=== PATIENT | male | born 1955 | race Caucasian/White ===

== ENCOUNTER 2019-08-16 17:30 | Emergency (ER) | payer MEDICARE, MEDICAID, SELFPAY ==
--- NOTE | ~2019-08-16 | XR_ITS ---
EXAMINATION: XR chest 1V portable EXAM DATE: 08/16/2019 18:52 INDICATION: Shortness of breath. TECHNIQUE: Portable AP frontal chest x-ray was obtained. Comparison is made to prior examination from 06/09/2016. FINDINGS: Some limitations from underpenetration due to body habitus. The lungs are clear. There are no pleural effusions. The cardiomediastinal silhouette is within normal limits. There is no pneumo thorax suspected. The bones and soft tissues are unremarkable. IMPRESSION: No acute cardiopulmonary findings. Reviewed, dictated and finalized at location A. PACKER
[2019-08-16 17:54] VITALS: BP 140/88; PULSE 71; RESP 24; TEMP 36.3; O2SAT 96
--- NOTE | 2019-08-16 18:07 | ED.FALL ---
HPI - Fall General Chief Complaint: Fall Stated Complaint: amb Source: patient Mode of arrival: EMS Limitations: physical limitation (obesity procludes complete turning on hospital cart and whole body examination. ) History of Present Illness HPI Narrative: 64 y.o. morbidly obese male with DM lives at home by himself. Around noon today he awoke on the kitchen floor in a pool of blood with a lacerated, painful chin, pain on the left side of his neck, left shoulder and left knee. He was unable to get up onto his hands and knees. He laid on the floor for about 4 hours before his home health nurse arrived and called EMS. He's unaware of urinary incontinence but denies painful, sore cheeks. No hx of syncope or seizures. He has no idea how long he was unconscious. He had no premonition of falling. Over the past few days he has had dyspnea with exertion, unable to make his breakfast and sit down and eat it without having to take breaks to rest. Two days ago he felt the hairs stand up on his scalp and had the sensation his blood sugar was getting low. This resolved after eating some peanut butter. At the time he did not check his blood sugar level. His BID blood sugars have been running in the 200s. This AM he had been doing his normal morning activiites. He had no chest pain, palpitations, sweating, lightheadedness, dizziness. He has no hx of falling. He has been dx. with cellulitis of his right heel. He's been off antibiotics for a week. The visiting nurse comes regularly to dress his heel. Tetanus shot within the last year per patient. Fall from: standing Fall witnessed: no Related Data Home Medications Medication Instructions Recorded Confirmed aspirin 81 mg tablet,delayed 81 mg PO DAILY 07/06/19 08/16/19 release atorvastatin 40 mg tablet 40 mg PO DAILY 07/06/19 08/16/19 hydrochlorothiazide 25 mg PO DAILY 08/16/19 08/16/19 Allergies Allergy/AdvReac Type Severity Reaction Status Date / Time No Known Allergies Allergy Verified 08/03/19 10:43 Review of Systems Constitutional: Constitutional: Denies chills and Denies fever(s) ENT: Denies dizziness Cardiovascular: Cardiovascular: Denies rapid heart rate and Denies radiating jaw, neck or arm pain Respiratory: Respiratory: Denies cough and Denies wheezing Gastrointestinal: Gastrointestinal: Denies abdominal pain, Denies diarrhea and Denies vomiting Genitourinary: Genitourinary: Denies dysuria Comments: He's only able to urinate in a sitting position. Musculoskeletal: Comments: c/o sacral pain which he believes developed while laying on the kitchen floor. Integumentary/Breasts: Skin/Breast: Reports system reviewed and no additional complaints, except as docu Neurologic: Denies vertigo, Denies headache(s) and Denies focal weakness [facility] Past Medical History Medical History (Updated 08/17/19 @ 05:31 by Rajan Hilario MD) First degree atrioventricular block Gangrene Gout Ichthyosis Ischemic bowel disease Morbid obesity with BMI of 60.0-69.9, adult Sepsis Surgical History Surgical History History of back surgery History of creation of ostomy Social History Social History (Updated 08/17/19 @ 05:31 by Rajan Hilario MD) Smoking status: Never smoker Second hand tobacco smoke exposure: No Substance use: never Living arrangements: alone Exam Narrative: Exam Narrative: Morbidly obese male, alert and interactive. His body takes up most of the bariatric cart. Unable to turn over on his side for full exam of back , or exam of the sacrum. Const: General: No confusion Orientation/consciousness: patient oriented x3 HENMT: Head: normal to inspection Head images: 1. 3.5 cm laceration 2. area of pain and tenderness Ears: EAC's normal Face and sinus: normal facial exam Mouth: Yes Normal oral and palatal mucosa present Teeth and gingiva: dentition normal Eyes: EOM: EOMs intact chapito
--- NOTE | 2019-08-16 18:08 | PC.NURSE ---
[facility] CONTACTED AT THIS TIME TO REQUEST TRANSFER PER ERP REQUEST
[2019-08-16 18:39] VITALS: RESP 24
--- NOTE | 2019-08-16 19:58 | PC.NURSE ---
RN CONTACTED [facility] TO INFORM HER OF TRANSFER TO [facility] PER PATIENTS REQUEST.
[2019-08-16 20:00] VITALS: BP 116/78; PULSE 73; RESP 20; O2SAT 99
== END 2019-08-16 20:00 | disposition short-term general hospital (02) ==
LOC: CHSED 17:37
PROVIDERS: Emergency Provider Family Medicine; PCP Family Medicine
DX: M53.3 Sacrococcygeal disorders, not elsewhere classified (principal); S01.81XA Laceration without foreign body of other part of head, initial encounter; R55 Syncope and collapse; S10.93XA Contusion of unspecified part of neck, initial encounter; M25.512 Pain in left shoulder; S80.02XA Contusion of left knee, initial encounter; E66.9 Obesity, unspecified; E11.9 Type 2 diabetes mellitus without complications; W19.XXXA Unspecified fall, initial encounter
CPT/HCPCS: 12013; 71045; 99284; 99285

== ENCOUNTER 2020-03-23 13:57 | Emergency (ER) | payer MEDICARE, MEDICAID, SELFPAY ==
--- NOTE | ~2020-03-23 | XR_ITS ---
EXAMINATION: XR chest 1V portable EXAM DATE: 03/23/2020 14:51 INDICATION: Chest pressure, weakness and shortness of breath. TECHNIQUE: Portable AP frontal chest x-ray was obtained. Comparison is made to prior examination from 09/12/2019. FINDINGS: The lungs are clear. There are no pleural effusions. Cardiac silhouette is prominent but magnified on this AP technique. There is no pneumothorax suspected. The bones and soft tissues are unremarkable. IMPRESSION: No acute cardiopulmonary findings. Reviewed, dictated and finalized at location G.
--- NOTE | ~2020-03-23 | XR_ITS ---
EXAMINATION: XR foot LT 2V DATE: 03/23/2020 14:52 INDICATION: Posttraumatic pain at the left first toe TECHNIQUE: Dorsoplantar and lateral views of the left foot were obtained. COMPARISON: None. FINDINGS: Bone alignment is normal. No fracture. Large plantar calcaneal spur and moderate-sized Achilles calca felicita spur. Joint spaces are relatively preserved. Prominent soft tissue swelling about the left foot, ankle and lower leg. IMPRESSION: 1. No acute osseous abnormality. Reviewed, dictated and finalized at location A.
[2020-03-23 14:00] VITALS: BP 102/53; PULSE 66; RESP 20; TEMP 36.6; O2SAT 99
--- NOTE | 2020-03-23 14:04 | ED.SYNCOPE ---
HPI - Syncope General Chief Complaint: Fall Stated Complaint: ambulance Time Seen by Provider: 03/23/20 14:04 Source: patient Mode of arrival: EMS Limitations: no limitations History of Present Illness HPI narrative: 64-year-old man with morbid obesity, diabetes, ischemic bowel disease and history of sepsis comes in today by EMS complaining of having passed out. Patient states he was sitting on the toilet and when he stood up everything went black and he fell backwards. He thinks he was unconscious for 4-5 minutes and was laying on the floor for three hours. He was found by his HH nurse. He states that he felt ill when he woke up this morning and has been having chest pressure, mild shortness of breath, and feeling cold. Blood glucose measured by EMS was 145. MD complaint: loss of consciousness, felt faint and collapsed Onset (ago): hour(s) (1-2) Prodromal symptoms: lightheaded Witnessed: No Context: standing up Injuries sustained associated with event: other (tailbone) Current symptoms: chest pain History: previous syncopal episode Related Data Home Medications Medication Instructions Recorded Confirmed aspirin 81 mg tablet,delayed 81 mg PO DAILY 07/06/19 03/23/20 release metoprolol tartrate 50 mg PO BID 03/23/20 03/23/20 Allergies Allergy/AdvReac Type Severity Reaction Status Date / Time No Known Allergies Allergy Verified 03/07/20 12:22 Review of Systems Constitutional: Constitutional: Reports chills, Denies fever(s) and Reports weakness Eyes: Eyes: Denies change in vision and Denies photophobia ENT: Denies dysphagia, Denies nasal congestion and Denies sore throat Cardiovascular: Cardiovascular: Reports chest pain (pressure) and Denies radiating jaw, neck or arm pain Respiratory: Respiratory: Denies cough, Denies dyspnea and Denies wheezing Gastrointestinal: Gastrointestinal: Denies abdominal pain, Denies nausea and Denies vomiting Comments: Black stools recently after taking iron. Genitourinary: Genitourinary: Denies dysuria and Denies urinary frequency Musculoskeletal: Comments: Pain in his left foot. Integumentary/Breasts: Skin/Breast: Denies pruritus, Denies erythema and Denies rash Neurologic: Denies vertigo, Denies dizziness and Denies syncope Endocrine: Endocrine: Denies polydipsia and Denies polyuria Hematologic/Lymphatic: Hematologic/Lymphatic: Denies easy bleeding and Denies easy bruising Allergic/Immunologic: Allergic/Immunologic: Denies lip swelling and Denies tongue swelling [facility] Past Medical History Medical History First degree atrioventricular block Gangrene Gout Ichthyosis Ischemic bowel disease Morbid obesity with BMI of 60.0-69.9, adult Sepsis UTI (urinary tract infection), uncomplicated Surgical History Surgical History History of back surgery History of creation of ostomy Family History Family History Father Family history of pancreatic cancer Social History Social History Smoking status: Never smoker Second hand tobacco smoke exposure: No Substance use: never Exam Const: General: alert Nutritional Appearance: obese Orientation/consciousness: patient oriented x3 Limitations: no limitations Other: Mildly anxious HENMT: Head: normal to inspection Ears: EAC's normal General nose exam: Normal nares present Face and sinus: normal facial exam Mouth: Yes moist mucous membranes Throat: posterior oropharynx normal Eyes: Conjunctivae: conjunctivae normal Pupils: Equal, round and reactive pupils present EOM: EOMs intact bilaterally Resp: Effort & Inspection: normal respiratory effort and not labored Auscultation: clear to auscultation bilaterally, no rales, no rhonchi and no wheezes Cardio: Rate: regular rate Rhythm: abno
--- NOTE | 2020-03-23 14:12 | ECG_ITS ---
Measurements Intervals [place] Rate: 67 P: MO: 0 QRS: 250 QRSD: 165 T: 36 QT: 438 QTc: 464 Interpretive Statements SINUS RHYTHM WITH FIRST DEGREE AV BLOCK RIGHT AXIS DEVIATION RIGHT BUNDLE BRANCH BLOCK LOW VOLTAGE- PRECORDIAL LEADS BASELINE ARTIFACT- I, II, III, AVR, AVL, AVF, V1-V2 ABNORMAL ECG Electronically Signed On 03-23-2020 14:38:32 CDT by Robin Ford D.O.
[2020-03-23] MEDS: ASPIRIN 81 MG CHEWABLE TABLET 243 MG PO (14:35)
[2020-03-23 14:44] LABS: Basophils Absolute Auto 0.05 K/mm3 (0.00-0.10); Basophils Percent Auto 0.5 % (0.0-1.0); Eosinophils Absolute Auto 0.09 K/mm3 (0.02-0.50); Eosinophils Percent Auto 0.8 % (1.0-6.0); Hemoglobin 13.1 g/dL (12.4-15.3); Immature Granulocyte Absolute 0.07 K/mm3 (0.00-0.00); Immature Granulocyte Percent A 0.6 % (0.0-0.0); Lymphocytes Percent Auto 6.4 % (18.0-42.0); Mean Corpuscular HGB Conc 31.2 g/dL (32.0-36.0); Mean Corpuscular Hemoglobin 29.7 pg (27.0-31.0); Mean Corpuscular Volume 95.2 fL (78.0-102.0); Mean Platelet Volume 10.2 fl (8.7-11.0); Monocytes Absolute Auto 0.91 K/mm3 (0.10-0.90); Monocytes Percent Auto 8.4 % (2.0-11.0); Neutrophils Absolute Auto 9.1 K/mm3 (1.7-7.2); Neutrophils Percent Auto 83.3 % (50.0-70.0); Platelet Count Result 239 K/mm3 (150-420); Red Blood Count 4.41 M/mm3 (4.70-6.10); White Blood Count 10.9 K/mm3 (4.8-10.8)
[2020-03-23] MEDS: SODIUM CHLORIDE 0.9% IV 1,000 ML 999 ML IV CONT (14:46)
[2020-03-23 14:59] LABS: INR 1.1; Partial Thromboplastin Time 26.3 SEC (22.3-31.6); Prothrombin Time 11.7 Seconds (9.64-11.0)
[2020-03-23 15:03] LABS: Alanine Aminotransferase 29 U/L (16-63); Albumin Level 3.4 g/dL (3.4-5.0); Alkaline Phosphatase 63 U/L (46-116); Anion Gap 8 mmol/L (8-16); Aspartate Amino Transferase 26 U/L (15-37); Bilirubin,Total 0.4 mg/dL (0.00-1.00); Blood Urea Nitrogen 27 mg/dL (7-18); CRP 0.8 mg/dL (0.0-0.9); Calcium 8.5 mg/dL (8.5-10.1); Carbon Dioxide 27 mmol/L (21-32); Chloride 103 mmol/L (98-108); Estimated Glomerular Filt Rate 55; Glucose 142 mg/dL (70-99); Lactic Acid Reflex 3.2 mmol/L (0.4-2.0); Osmolality Calculated 293 mOsm/kg (285-295); Potassium 4.6 mmol/L (3.5-5.1); Sodium 138 mmol/L (136-145); Total Protein 6.7 g/dL (6.4-8.2); Troponin I < 0.02 ng/mL (0.00-0.056)
[2020-03-23 15:04] LABS: Creatine Kinase 236 U/L (39-308)
[2020-03-23 15:07] LABS: Add Urine Microscopic? YES; Appearance Urine Sl Cloudy (Clear); Bilirubin Urine Negative (Negative); Blood Urine Negative (Negative); Color Urine Yellow (Yellow); Glucose Urine UA Negative (Negative); Ketones Urine Negative (Negative); Leukocyte Esterase Ur Negative LEU/UL (Negative); Nitrate Urine Negative (Negative); Protein Urine 2+ (Negative); Specific Grav Ur >= 1.030 (1.010-1.020); Urobilinogen Urine 0.2 mg/dL (0.2-1.0)
[2020-03-23 15:12] VITALS: BP 110/58; PULSE 62; O2SAT 100
[2020-03-23 15:15] LABS: RBC Urine None seen /hpf (0-2); WBC Urine None seen /hpf (0-3)
[2020-03-23 15:16] LABS: Bacteria Urine 1+ /hpf; Mucus Urine Few /lpf; Squamous Epithelial Cell Urine None seen /hpf (Few)
[2020-03-23 15:25] LABS: BNP 20 pg/mL (0-100)
[2020-03-23 15:36] LABS: D Dimer 1.51 mg/L (0.19-0.50)
--- NOTE | 2020-03-23 15:50 | PC.NURSE ---
[facility] CALLED FOR POSSIBLE TRANSFER - WILL AWAIT SOME TIME FOR BED ASSIGNMENT THEY HAVE NO VACANCIES - PT TO BE PLACED IN BARIATRIC BED UPSTAIRS FOR BOARDING
--- NOTE | 2020-03-23 16:26 | PC.NURSE ---
STUBBED LEFT GREAT TOENAIL CLEANED AND COVERED WITH BANDAID - LIGHTS DOWN LOW - PT AWARE WE ARE AWAITING BIG BOY BED FOR BOARDING WHILE WE AWAIT TRANSFER
[2020-03-23 16:28] VITALS: BP 100/38; PULSE 64; O2SAT 100
[2020-03-23 17:32] LABS: Troponin I < 0.02 ng/mL (0.00-0.056)
[2020-03-23 17:41] LABS: Reflex Lactic Acid Yes or No Add Lactic
[2020-03-23 18:01] LABS: Lactic Acid 1.2 mmol/L (0.4-2.0)
[2020-03-23 18:46] VITALS: BP 104/46; PULSE 68; O2SAT 99
[2020-03-23] MEDS: SODIUM CHLORIDE 0.9% IV 1,000 ML 125 ML IV CONT (19:53)
[2020-03-23 20:37] LABS: Troponin I < 0.02 ng/mL (0.00-0.056)
[2020-03-23 21:25] VITALS: BP 114/55; PULSE 74; O2SAT 100
--- NOTE | 2020-03-23 23:48 | PC.NURSE ---
called [facility] asking status for bariatric bed delivery, confirmation number for bed [phone]. To find out where bed is, and call back
--- NOTE | 2020-03-24 00:05 | PC.NURSE ---
Left message for [facility] about beds
--- NOTE | 2020-03-24 00:08 | PC.NURSE ---
patient very upset about no big bed available, and very uncomfortable. reassurance given
[2020-03-24 00:09] VITALS: BP 132/54; PULSE 75; RESP 16; O2SAT 98
--- NOTE | 2020-03-24 00:11 | PC.NURSE ---
Called to [facility], no ICU beds open only medical
--- NOTE | 2020-03-24 01:35 | PC.NURSE ---
[facility] patient stable. hospitalist to call back
--- NOTE | 2020-03-24 02:31 | PC.NURSE ---
2liter fluid complete, saline lock for transfer
[2020-03-24 02:33] VITALS: BP 130/70; PULSE 72; RESP 16; TEMP 36.6; O2SAT 98
== END 2020-03-24 02:43 | disposition short-term general hospital (02) ==
PROVIDERS: Emergency Provider Emergency Medicine; PCP Family Medicine
DX: R07.89 Other chest pain (principal); E11.9 Type 2 diabetes mellitus without complications; E66.01 Morbid (severe) obesity due to excess calories; R79.1 Abnormal coagulation profile; R06.02 Shortness of breath
CPT/HCPCS: 36415; 71045; 73620; 80053; 81001; 82550; 83605; 83880; 84484; 85025; 85380; 85610; 85730; 86140; 87040; 93005; 96360; 96361; 99285; A9270; J2270; J7030

== ENCOUNTER 2020-04-01 13:24 | Inpatient (IN) | payer MEDICARE, MEDICAID, SELFPAY ==
--- NOTE | 2020-04-01 13:01 | WPDREHABHP ---
H&P: HPI History of Present Illness Date/Time: 04/01/20 13:01 Patient is a pleasant 64-year-old man and able to give good history.Patient initially came to this hospital for syncopal episode. He was standing up from the commode got lightheaded fell backwards was found several hours later and then transported to the hospital via EMS. At this facility we did not have a CT large enough for this gentleman. He was then transferred to [facility] for syncope workup and a CTA to rule out PE. CTA was negative for PE. Additional workup at [facility] discovered complicated UTI, tachypnea, right renal cyst, rhabdomyolysis, and chronic diseases such as: chronic lower extremity lymphedema, a wound on his left great toe, type 2 diabetes, hypotension, hypothyroidism, and iron-deficiency anemia. Patient has since stabilized and is being transferred to this facility for reconditioning with PT/OT. Patient is morbidly obese at 235 kg. Documentation from [facility] shows patient is a DNR with a living will and we are attempting to contact facility to get a copy of that paperwork. At this time patient denies any chest pain but states he does have little labored breathing which was brought on by him attempting to get into the bed from the EMS stretcher. Once in bed this did improve. Patient has no abdominal complaints and admits he does have a colostomy. He stated he had some pain in his penis related to the Reveles catheter had been placed this has since been removed. Patient denies any lower extremity or upper extremity pain but admits to edema in both legs. He states that the left great toenail was hit against a door frame during his initial transport from home to the ER by EMS. He does not have any pain in that toe at this time. Only other complaint patient has is soreness at his coccyx rated at a 7 or 8/10. <CECIL Jett - Last Filed: 04/01/20 15:20> Chief complaint: Swing Bed <CECIL Jett - Last Filed: 04/01/20 15:20> Narrative: Julian Duran is a 64 year old male. <CECIL Jett - Last Filed: 04/01/20 15:20> Review of Systems Review of Systems All systems reviewed & are unremarkable except as noted in HPI and below <CECIL Jett - Last Filed: 04/01/20 15:20> [facility] Past Medical History Medical History: Medical History First degree atrioventricular block Gangrene Gout Ichthyosis Ischemic bowel disease Morbid obesity with BMI of 60.0-69.9, adult Sepsis UTI (urinary tract infection), uncomplicated <CECIL Jett - Last Filed: 04/01/20 15:20> Surgical History Surgical History: Surgical History History of back surgery History of creation of ostomy <CECIL Jett - Last Filed: 04/01/20 15:20> Family History Family History: Family History Father Family history of pancreatic cancer <CECIL Jett - Last Filed: 04/01/20 15:20> Social History Social History: Social History Smoking status: Never smoker Second hand tobacco smoke exposure: No Alcohol intake: former Drinks per week: 3 Substance use: never Substance use type: does not use Gender identity (if verbalized by the patient): Male Sexual Orientation (if Verbalized by the Patient): Straight or Heterosexual Spiritual care concerns: No <CECIL Jett - Last Filed: 04/01/20 15:20> Meds Home Medications and Allergies Home medications: Home Medications Medication Instructions Recorded Confirmed Type aspirin 81 mg tablet,delayed 81 mg PO DAILY 07/06/19 04/01/20 History release nystatin 100,000 unit/gram topical 1 applic TOPICAL BID #60 gm 07/06/19 04/01/20 Rx powder docusate sodium 100 mg c
[2020-04-01 13:45] VITALS: BP 146/67; PULSE 90; RESP 26; TEMP 36.8; O2SAT 96
[2020-04-01 14:00] VITALS: BMI 66.5
[2020-04-01 14:09] LABS: Glucose Point of Care 151 (65-105)
[2020-04-01 14:56] LABS: Hematocrit 36.8 % (37.0-46.0); Hemoglobin 11.2 g/dL (12.4-15.3); Mean Corpuscular HGB Conc 30.4 g/dL (32.0-36.0); Mean Corpuscular Hemoglobin 29.6 pg (27.0-31.0); Mean Corpuscular Volume 97.4 fL (78.0-102.0); Mean Platelet Volume 9.2 fl (8.7-11.0); Platelet Count Result 203 K/mm3 (150-420); Red Blood Count 3.78 M/mm3 (4.70-6.10); Red Cell Distribution Width 14.7 % (11.6-14.4); White Blood Count 7.4 K/mm3 (4.8-10.8)
[2020-04-01 15:06] LABS: Anion Gap 2 mmol/L (8-16); Blood Urea Nitrogen 18 mg/dL (7-18); Calcium 8.1 mg/dL (8.5-10.1); Carbon Dioxide 36 mmol/L (21-32); Chloride 100 mmol/L (98-108); Estimated CRCL calculation 140 ml/min; Estimated Glomerular Filt Rate > 60; Glucose 165 mg/dL (70-99); Osmolality Calculated 291 mOsm/kg (285-295); Potassium 3.4 mmol/L (3.5-5.1); Sodium 138 mmol/L (136-145)
[2020-04-01 15:14] LABS: Band Neutrophils Percent 4 % (0-6); Basophils Percent Manual 0 % (0-1); Eosinophils Absolute Manual 0.22 K/mm3 (0.02-0.5); Eosinophils Percent Manual 3 % (1-6); Lymphocytes Absolute Manual 0.88 K/mm3 (1.1-4.5); Lymphocytes Percent Manual 12 % (18-44); Monocytes Absolute Manual 0.96 K/mm3 (0.1-0.90); Monocytes Percent Manual 13 % (3-9); Neutrophils Absolute Manual 5.32 K/mm3 (1.3-6.7); Neutrophils Percent Manual 68 % (46-73); Platelet Estimate Adequate (Adequate); Total Cells Counted 100
[2020-04-01 17:00] LABS: Glucose Point of Care 112 (65-105)
--- NOTE | 2020-04-01 17:18 | PM.IMHP ---
H&P: HPI History of Present Illness Date/Time: 04/01/20 17:18 64-year-old man with history of morbid obesity, diabetes, ischemic bowel disease and history of sepsis transferred here for swing bed care and rehabilitation. He presented to this hospital on 03/23 having passed out after being on the toilet. He was there for 3 hours for his found by his home health nurse. He was transferred to [facility] where he had PE ruled out and treatment for rhabdomyolysis and UTI. Chief complaint: Swing Bed Narrative: Julian Duran is a 64 year old male Review of Systems Constitutional: Constitutional: Denies anorexia, Denies fatigue, Denies fever(s), Denies night sweats and Reports weakness Eyes: Eyes: Denies change in vision and Denies photophobia ENT: Denies nasal congestion, Denies sore throat and Denies tongue swelling Cardiovascular: Cardiovascular: Denies chest pain, Denies irregular heart rhythm, Reports leg edema and Reports dyspnea on exertion Respiratory: Respiratory: Denies cough and Denies dyspnea Gastrointestinal: Gastrointestinal: Denies abdominal pain, Denies diarrhea, Denies nausea and Denies vomiting Genitourinary: Genitourinary: Denies dysuria, Denies urinary frequency and Denies urinary incontinence Integumentary/Breasts: Skin/Breast: Denies pruritus, Denies erythema and Denies rash Neurologic: Denies focal weakness, Denies numbness and Reports weakness Psychiatric: Psychiatric: Denies anxiety and Denies depression Hematologic/Lymphatic: Hematologic/Lymphatic: Denies easy bleeding and Denies easy bruising Allergic/Immunologic: Allergic/Immunologic: Denies urticaria, Denies lip swelling and Denies tongue swelling PMF[facility] Past Medical History Medical History First degree atrioventricular block Gangrene Gout Ichthyosis Ischemic bowel disease Morbid obesity with BMI of 60.0-69.9, adult Sepsis UTI (urinary tract infection), uncomplicated Surgical History Surgical History History of back surgery History of creation of ostomy Family History Family History Father Family history of pancreatic cancer Social History Social History Smoking status: Never smoker Second hand tobacco smoke exposure: No Alcohol intake: former Drinks per week: 3 Substance use: never Substance use type: does not use Gender identity (if verbalized by the patient): Male Sexual Orientation (if Verbalized by the Patient): Straight or Heterosexual Spiritual care concerns: No Meds Home Medications and Allergies Home Medications Medication Instructions Recorded Confirmed Type aspirin 81 mg tablet,delayed 81 mg PO DAILY 07/06/19 04/01/20 History release nystatin 100,000 unit/gram topical 1 applic TOPICAL BID #60 gm 07/06/19 04/01/20 Rx powder docusate sodium 100 mg capsule 100 mg PO BID #60 cap 07/07/19 04/01/20 Rx ferrous sulfate 325 mg (65 mg 325 mg PO BID #60 tablet 07/07/19 04/01/20 Rx iron) tablet triamcinolone acetonide 0.1 % 1 applic TOPICAL BID #80 gm 08/03/19 04/01/20 Rx topical cream insulin aspart U-100 100 unit/mL 1 sliding scale dose SUB-Q 11/24/19 04/01/20 Rx subcutaneous solution USEASDIRECTD #50 ml valsartan 160 mg tablet 160 mg PO DAILY #30 tablet 12/27/19 04/01/20 Rx atorvastatin 40 mg tablet 40 mg PO DAILY #90 tablet 01/27/20 04/01/20 Rx levothyroxine 88 mcg tablet 88 mcg PO DAILY #90 tablet 01/27/20 04/01/20 Rx tamsulosin 0.4 mg capsule 0.4 mg PO DAILY #90 cap 01/27/20 04/01/20 Rx allopurinol 300 mg tablet 300 mg PO DAILY #30 tablet 02/24/20 04/01/20 Rx furosemide 20 mg tablet 60 mg PO QAM PRN #90 tablet 02/24/20 04/01/20 Rx pantoprazole 40 mg tablet,delayed 40 mg PO BID #60 tablet 02/28/20 04/01/20 Rx release blood sugar diagnostic #100 ea 03/27/20
[2020-04-01] MEDS: PANTOPRAZOLE 40 MG TABLET PO (17:22)
[2020-04-01] MEDS: DOCUSATE SODIUM 100 MG CAPSULE PO (17:22)
[2020-04-01] MEDS: FERROUS SULFATE 324 MG TABLET 325 MG PO (17:27)
[2020-04-01] MEDS: INSULIN GLARGINE (*BKC) 100 UNITS/ML 60 UNITS SUB-Q (20:47)
[2020-04-01 20:54] LABS: Glucose Point of Care 168 (65-105)
[2020-04-02] VITALS: BP 123/71; PULSE 93; RESP 16; TEMP 36.8; O2SAT 94
[2020-04-02] MEDS: ACETAMINOPHEN 500 MG TABLET 1000 MG PO ×2 (01:50→09:57)
[2020-04-02 05:31] LABS: Hematocrit 36.3 % (37.0-46.0); Mean Corpuscular HGB Conc 30.3 g/dL (32.0-36.0); Mean Corpuscular Hemoglobin 29.5 pg (27.0-31.0); Mean Corpuscular Volume 97.3 fL (78.0-102.0); Mean Platelet Volume 9.4 fl (8.7-11.0); Platelet Count Result 205 K/mm3 (150-420); Red Blood Count 3.73 M/mm3 (4.70-6.10); White Blood Count 9.2 K/mm3 (4.8-10.8)
[2020-04-02 05:57] LABS: Alanine Aminotransferase 37 U/L (16-63); Albumin Level 2.7 g/dL (3.4-5.0); Alkaline Phosphatase 74 U/L (46-116); Anion Gap 4 mmol/L (8-16); Aspartate Amino Transferase 38 U/L (15-37); Bilirubin,Total 0.5 mg/dL (0.00-1.00); Blood Urea Nitrogen 17 mg/dL (7-18); Calcium 7.9 mg/dL (8.5-10.1); Carbon Dioxide 35 mmol/L (21-32); Chloride 101 mmol/L (98-108); Creatine Kinase 137 U/L (39-308); Estimated CRCL calculation 187 ml/min; Estimated Glomerular Filt Rate > 60; Glucose 98 mg/dL (70-99); Magnesium 1.8 mg/dL (1.8-2.4); Osmolality Calculated 291 mOsm/kg (285-295); Potassium 3.2 mmol/L (3.5-5.1); Sodium 140 mmol/L (136-145); Total Protein 5.9 g/dL (6.4-8.2)
[2020-04-02 06:05] LABS: Thyroid Stimulating Hormone Reflex 7.53 u/IU/mL (0.36-3.74)
[2020-04-02 06:13] LABS: Band Neutrophils Percent 3 % (0-6); Basophils Percent Manual 0 % (0-1); Eosinophils Absolute Manual 0.46 K/mm3 (0.02-0.5); Eosinophils Percent Manual 5 % (1-6); Monocytes Absolute Manual 1.84 K/mm3 (0.1-0.90); Monocytes Percent Manual 20 % (3-9); Total Cells Counted 100
[2020-04-02 06:14] LABS: Nucleated Red Blood Cells 1 %; Platelet Estimate Adequate (Adequate)
[2020-04-02 06:16] LABS: Other Cell Type 4
[2020-04-02 06:20] LABS: Lymphocytes Absolute Manual 1.19 K/mm3 (1.1-4.5); Lymphocytes Percent Manual 13 % (18-44)
[2020-04-02 06:21] LABS: Neutrophils Absolute Manual 5.79 K/mm3 (1.3-6.7); Neutrophils Percent Manual 60 % (46-73)
[2020-04-02 07:01] LABS: Free T4 Free Thyroxine Reflex 1.09 ng/dL (0.76-1.46)
[2020-04-02 07:40] VITALS: BP 143/71; PULSE 83; RESP 20; TEMP 35.9; O2SAT 95
[2020-04-02 07:45] LABS: Glucose Point of Care 106 (65-105)
[2020-04-02] MEDS: TAMSULOSIN HCL 0.4 MG CAPSULE PO (09:57)
[2020-04-02] MEDS: levoFLOXacin TAB 500 MG, levoFLOXacin TAB 250 MG 750 MG PO (09:57)
[2020-04-02] MEDS: DOCUSATE SODIUM 100 MG CAPSULE PO ×2 (09:58→17:19)
[2020-04-02] MEDS: ATORVASTATIN 40 MG TABLET PO (09:58)
[2020-04-02] MEDS: ASPIRIN 81 MG ENTERIC TABLET PO (09:58)
[2020-04-02] MEDS: POTASSIUM CHLORIDE 20 MEQ TABLET 40 MEQ PO (09:58)
[2020-04-02] MEDS: PANTOPRAZOLE 40 MG TABLET PO ×2 (09:58→17:19)
[2020-04-02] MEDS: allopurinoL 300 MG TABLET PO (09:59)
[2020-04-02] MEDS: hydroCHLOROthiazide 25 MG TABLET PO (09:59)
[2020-04-02] MEDS: LEVOTHYROXINE SODIUM 100 MCG TABLET PO (09:59)
[2020-04-02] MEDS: FERROUS SULFATE 324 MG TABLET PO (10:09)
--- NOTE | 2020-04-02 10:10 | PC.NURSE ---
Radha conner called to order bigger walker and bedside commode. Reference # [id number].
[2020-04-02 11:41] LABS: Glucose Point of Care 131 (65-105)
[2020-04-02] MEDS: FUROSEMIDE 20 MG TABLET 60 MG PO (12:57)
[2020-04-02] MEDS: HYDROcodone/acetaminophen (*CRX) 7.5-325 MG TABLET 1 TAB PO ×2 (12:58→20:51)
[2020-04-02 16:30] VITALS: BP 138/78; PULSE 100; RESP 18; TEMP 37; O2SAT 94
[2020-04-02 17:29] LABS: Glucose Point of Care 107 (65-105)
--- NOTE | 2020-04-02 18:14 | PC.NURSE ---
Patient sitting up in chair resting. Denies any needs at this time. Patient has call light at side.
[2020-04-02 19:25] LABS: Add Urine Microscopic? YES; Appearance Urine Clear (Clear); Bilirubin Urine Negative (Negative); Blood Urine 1+ (Negative); Color Urine Yellow (Yellow); Glucose Urine UA Negative (Negative); Ketones Urine Negative (Negative); Leukocyte Esterase Ur Trace LEU/UL (Negative); Nitrate Urine Negative (Negative); Protein Urine Negative (Negative); Specific Grav Ur 1.025 (1.010-1.020); Urobilinogen Urine 0.2 mg/dL (0.2-1.0); pH Urine 5.5 (5.0-8.0)
[2020-04-02 19:31] LABS: Bacteria Urine 1+ /hpf; Squamous Epithelial Cell Urine Rare /hpf (Few)
--- NOTE | 2020-04-02 20:42 | PC.NURSE ---
Assisted patient to bedside commode and bed. Has difficulty with bedside commode due to size. Requires assist of 2 to put legs up into bed.
[2020-04-02] MEDS: INSULIN GLARGINE (*BKC) 100 UNITS/ML 60 UNITS SUB-Q (20:56)
[2020-04-02 20:57] LABS: Glucose Point of Care 172 (65-105)
[2020-04-02 23:40] LABS: Glucose Point of Care 136 (65-105)
--- NOTE | 2020-04-02 23:55 | PC.NURSE ---
Diabetic snack given.
[2020-04-03] VITALS: BP 123/84; PULSE 90; RESP 20; TEMP 36; O2SAT 98
[2020-04-03] MEDS: ACETAMINOPHEN 500 MG TABLET 1000 MG PO (01:35)
[2020-04-03] MEDS: LEVOTHYROXINE SODIUM 100 MCG TABLET PO (05:56)
[2020-04-03 07:20] VITALS: BP 145/67; PULSE 89; RESP 20; TEMP 36.6; O2SAT 95
[2020-04-03 08:04] LABS: Glucose Point of Care 129 (65-105)
[2020-04-03] MEDS: DOCUSATE SODIUM 100 MG CAPSULE PO ×2 (08:34→16:24)
[2020-04-03] MEDS: levoFLOXacin TAB 500 MG, levoFLOXacin TAB 250 MG 750 MG PO (08:34)
[2020-04-03] MEDS: ATORVASTATIN 40 MG TABLET PO (08:34)
[2020-04-03] MEDS: hydroCHLOROthiazide 25 MG TABLET PO (08:34)
[2020-04-03] MEDS: HYDROcodone/acetaminophen (*CRX) 7.5-325 MG TABLET 1 TAB PO ×3 (08:34→22:25)
[2020-04-03] MEDS: allopurinoL 300 MG TABLET PO (08:35)
[2020-04-03] MEDS: ASPIRIN 81 MG ENTERIC TABLET PO (08:35)
[2020-04-03] MEDS: POTASSIUM CHLORIDE 20 MEQ TABLET PO (08:35)
[2020-04-03] MEDS: PANTOPRAZOLE 40 MG TABLET PO ×2 (08:35→16:23)
[2020-04-03] MEDS: TAMSULOSIN HCL 0.4 MG CAPSULE PO (08:35)
[2020-04-03] MEDS: FERROUS SULFATE 324 MG TABLET PO (08:35)
[2020-04-03 11:45] LABS: Glucose Point of Care 164 (65-105)
--- NOTE | 2020-04-03 12:33 | P.PN_ITS ---
Progress Note: A&P Assessment and Plan (1) T2DM (type 2 diabetes mellitus): Qualifiers: Diabetes mellitus complication detail: with polyneuropathy Diabetes mellitus complication status: with neurologic complications Diabetes mellitus mcfp insulin use: with terminologist use Qualified Code(s): E11.42 - Type 2 diabetes mellitus with diabetic polyneuropathy; Z79.4 - alf (current) use of insulin Code(s): E11.9 - Type 2 diabetes mellitus without complications Status: Acute Assessment and Plan: * Blood sugar control 164 * Continue insulin Lantus 60 units at bedtime and 20 units 3 times daily with Accu-Cheks and hypoglycemic protocol * Continue diabetic diet * Will collect A1c with next lab draw (2) UTI (urinary tract infection), uncomplicated: Code(s): N39.0 - Urinary tract infection, site not specified Status: Acute Assessment and Plan: * Continue Levaquin 750 mg daily until 04/10/2020 * Request a UA culture results from [facility] in [place] (3) Hyperlipidemia: Code(s): E78.5 - Hyperlipidemia, unspecified Status: Acute Assessment and Plan: * Continue statins (4) Hypertension: Code(s): I10 - Essential (primary) hypertension Status: Acute Assessment and Plan: * Blood pressure 145/67 * Continue hydrochlorothiazide 25 mg daily, restarted valsartan 160 mg * Vital signs as ordered * Will adjust as needed (5) Chronic GERD: Code(s): K21.9 - Gastro-esophageal reflux disease without esophagitis Status: Acute Assessment and Plan: * Continue pantoprazole (6) BPH (benign prostatic hyperplasia): Code(s): N40.0 - Benign prostatic hyperplasia without lower urinary tract symptoms Status: Acute Assessment and Plan: * Continue Flomax (7) Morbid obesity with BMI of 60.0-69.9, adult: Code(s): E66.01 - Morbid (severe) obesity due to excess calories; Z68.44 - Body mass index [BMI] 60.0-69.9, adult Status: Acute Assessment and Plan: * Patient educated on the healthy lifestyle (8) Lower extremity edema: Code(s): R60.0 - Localized edema Status: Acute Assessment and Plan: * Continue Lasix prn hydrochlorothiazide * Continue to lubricate lower extremities with moisturizer in wrap with Kit wrap (9) Colostomy in place: Code(s): Z93.3 - Colostomy status Status: Acute Assessment and Plan: * 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 Exhibit tolerance during physical activity as evidenced by a normal fluctuation of vital signs during physical activity. ? Patient will be ability to perform required activities of daily living. ? Provide appropriate nutrition for healing and strength. ? Use appropriate to prevent falls. ? Continue physical therapy/occupational therapy. Review of Systems Review of Systems: All systems reviewed & are unremarkable except as noted in HPI and below (10 point system review) Exam Narrative: Exam Narrative: GENERAL: Morbidly obese in no apparent distress. HEAD: normocephalic, atraumatic. EYES: PERRL. Sclera clear/white. Vision is grossly intact. EARS: External ears normal, auditory canals clear and without drainage, TMs normal without perforation. Hearing grossly intact. NOSE: External nose normal with no obvious nasal discharge, nares without redness, no r
--- NOTE | 2020-04-03 12:33 | WPDPN ---
Progress Note: A&P Assessment and Plan (1) T2DM (type 2 diabetes mellitus): Qualifiers: Diabetes mellitus complication detail: with polyneuropathy Diabetes mellitus complication status: with neurologic complications Diabetes mellitus longterm insulin use: with longterm use Qualified Code(s): E11.42 - Type 2 diabetes mellitus with diabetic polyneuropathy; Z79.4 - [facility] (current) use of insulin Code(s): E11.9 - Type 2 diabetes mellitus without complications Status: Acute Assessment and Plan: Blood sugar control 164 Continue insulin Lantus 60 units at bedtime and 20 units 3 times daily with Accu-Cheks and hypoglycemic protocol Continue diabetic diet Will collect A1c with next lab draw (2) UTI (urinary tract infection), uncomplicated: Code(s): N39.0 - Urinary tract infection, site not specified Status: Acute Assessment and Plan: Continue Levaquin 750 mg daily until 04/10/2020 Request a UA culture results from [facility] in [place] (3) Hyperlipidemia: Code(s): E78.5 - Hyperlipidemia, unspecified Status: Acute Assessment and Plan: Continue statins (4) Hypertension: Code(s): I10 - Essential (primary) hypertension Status: Acute Assessment and Plan: Blood pressure 145/67 Continue hydrochlorothiazide 25 mg daily, restarted valsartan 160 mg Vital signs as ordered Will adjust as needed (5) Chronic GERD: Code(s): K21.9 - Gastro-esophageal reflux disease without esophagitis Status: Acute Assessment and Plan: Continue pantoprazole (6) BPH (benign prostatic hyperplasia): Code(s): N40.0 - Benign prostatic hyperplasia without lower urinary tract symptoms Status: Acute Assessment and Plan: Continue Flomax (7) Morbid obesity with BMI of 60.0-69.9, adult: Code(s): E66.01 - Morbid (severe) obesity due to excess calories; Z68.44 - Body mass index [BMI] 60.0-69.9, adult Status: Acute Assessment and Plan: Patient educated on the healthy lifestyle (8) Lower extremity edema: Code(s): R60.0 - Localized edema Status: Acute Assessment and Plan: Continue Lasix prn hydrochlorothiazide Continue to lubricate lower extremities with moisturizer in wrap with Kit wrap (9) Colostomy in place: Code(s): Z93.3 - Colostomy status Status: Acute Assessment and Plan: 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 Exhibit tolerance during physical activity as evidenced by a normal fluctuation of vital signs during physical activity. ? Patient will be ability to perform required activities of daily living. ? Provide appropriate nutrition for healing and strength. ? Use appropriate to prevent falls. ? Continue physical therapy/occupational therapy. Review of Systems Review of Systems: All systems reviewed & are unremarkable except as noted in HPI and below (10 point system review) Exam Narrative: Exam Narrative: GENERAL: Morbidly obese in no apparent distress. HEAD: normocephalic, atraumatic. EYES: PERRL. Sclera clear/white. Vision is grossly intact. EARS: External ears normal, auditory canals clear and without drainage, TMs normal without perforation. Hearing grossly intact. NOSE: External nose normal with no obvious nasal discharge, nares without redness, no rhinorrhea. THROAT: Mucous membranes moist, posterior pharynx clear. NECK: Neck supple, non-tender without lymphadenopathy, masses or thyromegaly. CARDIOVASCULAR: Regular rate and rhythm without murmurs, gallops, or rubs. RESPIRATORY: Clear to auscultation. Breath sounds equal bilaterally. No wheezes, rales, or rhonchi. GASTROINTESTINAL: Abdomen soft, non-tender, nondistended. Bowel sounds are active. Ostomy bag in place with s
[2020-04-03 15:45] VITALS: BP 129/69; PULSE 92; RESP 20; TEMP 36.9; O2SAT 96
[2020-04-03 16:29] LABS: Glucose Point of Care 153 (65-105)
[2020-04-03] MEDS: INSULIN GLARGINE (*BKC) 100 UNITS/ML 60 UNITS SUB-Q (20:51)
[2020-04-03 20:56] LABS: Glucose Point of Care 206 (65-105)
[2020-04-04] VITALS: BP 140/63; PULSE 88; RESP 20; TEMP 36.6; O2SAT 95
--- NOTE | 2020-04-04 02:20 | PC.NURSE ---
pt sleeping, respirations even and regular, no evidence of distress noted at this time
[2020-04-04] MEDS: LEVOTHYROXINE SODIUM 100 MCG TABLET PO (05:35)
[2020-04-04 06:15] LABS: Alanine Aminotransferase 37 U/L (16-63); Alkaline Phosphatase 68 U/L (46-116); Anion Gap 5 mmol/L (8-16); Aspartate Amino Transferase 33 U/L (15-37); Bilirubin,Total 0.6 mg/dL (0.00-1.00); Blood Urea Nitrogen 13 mg/dL (7-18); Calcium 8.8 mg/dL (8.5-10.1); Carbon Dioxide 36 mmol/L (21-32); Chloride 98 mmol/L (98-108); Estimated CRCL calculation 157 ml/min; Estimated Glomerular Filt Rate > 60; Glucose 140 mg/dL (70-99); Magnesium 1.9 mg/dL (1.8-2.4); Osmolality Calculated 290 mOsm/kg (285-295); Potassium 3.7 mmol/L (3.5-5.1); Sodium 139 mmol/L (136-145); Total Protein 5.6 g/dL (6.4-8.2)
[2020-04-04 08:00] VITALS: BP 148/80; PULSE 79; RESP 20; TEMP 36.1; O2SAT 96
[2020-04-04] MEDS: VALSARTAN 80 MG TABLET 160 MG PO (09:24)
[2020-04-04] MEDS: HYDROcodone/acetaminophen (*CRX) 7.5-325 MG TABLET 1 TAB PO ×3 (09:24→22:10)
[2020-04-04] MEDS: DOCUSATE SODIUM 100 MG CAPSULE PO ×2 (09:24→16:47)
[2020-04-04] MEDS: ASPIRIN 81 MG ENTERIC TABLET PO (09:25)
[2020-04-04] MEDS: PANTOPRAZOLE 40 MG TABLET PO ×2 (09:25→16:47)
[2020-04-04] MEDS: POTASSIUM CHLORIDE 20 MEQ TABLET PO (09:25)
[2020-04-04] MEDS: levoFLOXacin TAB 500 MG, levoFLOXacin TAB 250 MG 750 MG PO (09:25)
[2020-04-04] MEDS: hydroCHLOROthiazide 25 MG TABLET PO (09:25)
[2020-04-04] MEDS: ATORVASTATIN 40 MG TABLET PO (09:25)
[2020-04-04] MEDS: TAMSULOSIN HCL 0.4 MG CAPSULE PO (09:25)
[2020-04-04] MEDS: FERROUS SULFATE 324 MG TABLET PO (09:25)
[2020-04-04] MEDS: allopurinoL 300 MG TABLET PO (09:25)
[2020-04-04 11:54] LABS: Glucose Point of Care 165 (65-105)
[2020-04-04 15:56] VITALS: BP 92/49; PULSE 95; RESP 20; TEMP 36.3; O2SAT 94
--- NOTE | 2020-04-04 16:12 | PCOTNOTE ---
OT attempted to see patient however patient refused and stated I just got back into bed and am worn out from PT.
[2020-04-04 16:56] LABS: Glucose Point of Care 144 (65-105)
[2020-04-04] MEDS: INSULIN GLARGINE (*BKC) 100 UNITS/ML 60 UNITS SUB-Q (20:49)
[2020-04-04 20:53] LABS: Glucose Point of Care 199 (65-105)
[2020-04-05] VITALS: BP 143/69; PULSE 85; RESP 20; TEMP 36.4; O2SAT 95
[2020-04-05] MEDS: HYDROcodone/acetaminophen (*CRX) 7.5-325 MG TABLET 1 TAB PO ×3 (05:10→20:52)
[2020-04-05] MEDS: LEVOTHYROXINE SODIUM 100 MCG TABLET PO (05:10)
[2020-04-05 08:00] VITALS: BP 134/67; PULSE 80; RESP 20; TEMP 35.9; O2SAT 96
[2020-04-05] MEDS: hydroCHLOROthiazide 25 MG TABLET PO (09:02)
[2020-04-05] MEDS: VALSARTAN 80 MG TABLET 160 MG PO (09:02)
[2020-04-05] MEDS: levoFLOXacin TAB 500 MG, levoFLOXacin TAB 250 MG 750 MG PO (09:02)
[2020-04-05] MEDS: ASPIRIN 81 MG ENTERIC TABLET PO (09:03)
[2020-04-05] MEDS: TAMSULOSIN HCL 0.4 MG CAPSULE PO (09:03)
[2020-04-05] MEDS: FERROUS SULFATE 324 MG TABLET PO (09:03)
[2020-04-05] MEDS: PANTOPRAZOLE 40 MG TABLET PO ×2 (09:03→16:55)
[2020-04-05] MEDS: ATORVASTATIN 40 MG TABLET PO (09:03)
[2020-04-05] MEDS: ACETAMINOPHEN 500 MG TABLET 1000 MG PO (09:03)
[2020-04-05] MEDS: allopurinoL 300 MG TABLET PO (09:03)
[2020-04-05] MEDS: DOCUSATE SODIUM 100 MG CAPSULE PO ×2 (09:03→16:55)
[2020-04-05] MEDS: POTASSIUM CHLORIDE 20 MEQ TABLET PO (09:03)
[2020-04-05 11:47] LABS: Glucose Point of Care 154 (65-105)
[2020-04-05 11:47] LABS: Glucose Point of Care 160 (65-105)
[2020-04-05 16:00] VITALS: BP 116/71; PULSE 89; RESP 20; TEMP 36.4; O2SAT 97
[2020-04-05 16:59] LABS: Glucose Point of Care 131 (65-105)
--- NOTE | 2020-04-05 18:11 | PC.NURSE ---
Nurse called [facility] to cancel bariatric walker due to [employer] delivering one.
--- NOTE | 2020-04-05 20:01 | PC.NURSE ---
[facility] delivered bariatric walker. Placed in patient's room.
--- NOTE | 2020-04-05 20:30 | PC.NURSE ---
Patient experiencing panic attack. Called out for assistance. PRN medication given. Blair reports increased anxiety iwth returning home and wether she wants to continue chemotherapy
[2020-04-05] MEDS: INSULIN GLARGINE (*BKC) 100 UNITS/ML 60 UNITS SUB-Q (20:53)
[2020-04-05 21:15] LABS: Glucose Point of Care 154 (65-105)
[2020-04-06] VITALS: BP 151/55; PULSE 92; RESP 22; TEMP 36.3; O2SAT 95
[2020-04-06] MEDS: LEVOTHYROXINE SODIUM 100 MCG TABLET PO (05:53)
[2020-04-06 07:31] LABS: Glucose Point of Care 132 (65-105)
[2020-04-06 08:00] VITALS: BP 114/57; PULSE 82; RESP 20; TEMP 36; O2SAT 96
[2020-04-06] MEDS: levoFLOXacin TAB 500 MG, levoFLOXacin TAB 250 MG 750 MG PO (08:16)
[2020-04-06] MEDS: allopurinoL 300 MG TABLET PO (08:17)
[2020-04-06] MEDS: VALSARTAN 80 MG TABLET 160 MG PO (08:17)
[2020-04-06] MEDS: TAMSULOSIN HCL 0.4 MG CAPSULE PO (08:17)
[2020-04-06] MEDS: PANTOPRAZOLE 40 MG TABLET PO ×2 (08:17→16:58)
[2020-04-06] MEDS: POTASSIUM CHLORIDE 20 MEQ TABLET PO (08:17)
[2020-04-06] MEDS: ASPIRIN 81 MG ENTERIC TABLET PO (08:17)
[2020-04-06] MEDS: ATORVASTATIN 40 MG TABLET PO (08:17)
[2020-04-06] MEDS: hydroCHLOROthiazide 25 MG TABLET PO (08:17)
[2020-04-06] MEDS: ACETAMINOPHEN 500 MG TABLET 1000 MG PO (08:17)
[2020-04-06] MEDS: DOCUSATE SODIUM 100 MG CAPSULE PO ×2 (08:17→16:59)
[2020-04-06 11:29] LABS: Glucose Point of Care 148 (65-105)
[2020-04-06] MEDS: FERROUS SULFATE 324 MG TABLET PO (11:31)
[2020-04-06] MEDS: HYDROcodone/acetaminophen (*CRX) 7.5-325 MG TABLET 1 TAB PO ×2 (13:14→20:24)
[2020-04-06 16:00] VITALS: BP 131/78; PULSE 92; RESP 20; TEMP 36.6; O2SAT 95
[2020-04-06 16:54] LABS: Glucose Point of Care 101 (65-105)
[2020-04-06] MEDS: INSULIN GLARGINE (*BKC) 100 UNITS/ML 60 UNITS SUB-Q (20:25)
[2020-04-06 20:27] LABS: Glucose Point of Care 120 (65-105)
--- NOTE | 2020-04-06 20:35 | PC.NURSE ---
Glucose 120 glucerna given with HS medication
[2020-04-07] VITALS: BP 130/59; PULSE 92; RESP 18; TEMP 36.4; O2SAT 97
[2020-04-07] MEDS: LEVOTHYROXINE SODIUM 100 MCG TABLET PO (05:29)
[2020-04-07 05:43] LABS: Hematocrit 38.8 % (37.0-46.0); Hemoglobin 11.8 g/dL (12.4-15.3); Mean Corpuscular HGB Conc 30.4 g/dL (32.0-36.0); Mean Corpuscular Hemoglobin 29.6 pg (27.0-31.0); Mean Corpuscular Volume 97.2 fL (78.0-102.0); Mean Platelet Volume 9.3 fl (8.7-11.0); Platelet Count Result 244 K/mm3 (150-420); Red Blood Count 3.99 M/mm3 (4.70-6.10); Red Cell Distribution Width 15.4 % (11.6-14.4); White Blood Count 7.1 K/mm3 (4.8-10.8)
[2020-04-07 06:04] LABS: Alanine Aminotransferase 40 U/L (16-63); Albumin Level 3.1 g/dL (3.4-5.0); Alkaline Phosphatase 62 U/L (46-116); Anion Gap 4 mmol/L (8-16); Aspartate Amino Transferase 37 U/L (15-37); Bilirubin,Total 0.6 mg/dL (0.00-1.00); Blood Urea Nitrogen 14 mg/dL (7-18); Carbon Dioxide 33 mmol/L (21-32); Chloride 100 mmol/L (98-108); Estimated CRCL calculation 139 ml/min; Estimated Glomerular Filt Rate > 60; Glucose 137 mg/dL (70-99); Osmolality Calculated 286 mOsm/kg (285-295); Phosphorus 4.5 mg/dL (2.6-4.7); Potassium 3.8 mmol/L (3.5-5.1); Sodium 137 mmol/L (136-145); Total Protein 6.3 g/dL (6.4-8.2)
--- NOTE | 2020-04-07 07:17 | PM.DS ---
DS: Admitting Diagnosis Admitting Diagnosis Admitting Diagnosis: rehab DS: Discharge Diagnosis Discharge Diagnosis (1) T2DM (type 2 diabetes mellitus): Qualifiers: Diabetes mellitus complication detail: with polyneuropathy Diabetes mellitus complication status: with neurologic complications Diabetes mellitus watcher [employer] insulin use: with watcher [employer] use Qualified Code(s): E11.42 - Type 2 diabetes mellitus with diabetic polyneuropathy; Z79.4 - long term acute care registered nurse (current) use of insulin Code(s): E11.9 - Type 2 diabetes mellitus without complications Status: Acute Assessment and Plan: Blood sugar control 120 Continue insulin Lantus 60 units at bedtime and 20 units 3 times daily with Accu-Cheks and hypoglycemic protocol Continue diabetic diet A1c -6.5 (2) UTI (urinary tract infection), uncomplicated: Code(s): N39.0 - Urinary tract infection, site not specified Status: Acute Assessment and Plan: Continue Levaquin 750 mg daily until 04/11/2020 (3) Hyperlipidemia: Code(s): E78.5 - Hyperlipidemia, unspecified Status: Acute Assessment and Plan: Continue statins (4) Hypertension: Code(s): I10 - Essential (primary) hypertension Status: Acute Assessment and Plan: Blood pressure 130/59 Continue hydrochlorothiazide 25 mg daily, restarted valsartan 160 mg Follow-up primary care physician (5) Chronic GERD: Code(s): K21.9 - Gastro-esophageal reflux disease without esophagitis Status: Acute Assessment and Plan: Continue pantoprazole (6) BPH (benign prostatic hyperplasia): Code(s): N40.0 - Benign prostatic hyperplasia without lower urinary tract symptoms Status: Acute Assessment and Plan: Continue Flomax (7) Morbid obesity with BMI of 60.0-69.9, adult: Code(s): E66.01 - Morbid (severe) obesity due to excess calories; Z68.44 - Body mass index [BMI] 60.0-69.9, adult Status: Acute Assessment and Plan: Patient educated on the healthy lifestyle (8) Lower extremity edema: Code(s): R60.0 - Localized edema Status: Acute Assessment and Plan: Continue Lasix prn hydrochlorothiazide Continue to lubricate lower extremities with moisturizer in wrap with Kit wrap (9) Colostomy in place: Code(s): Z93.3 - Colostomy status Status: Acute Assessment and Plan: 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 Exhibit tolerance during physical activity as evidenced by a normal fluctuation of vital signs during physical activity. ? Patient will be ability to perform required activities of daily living. ? Provide appropriate nutrition for healing and strength. ? Use appropriate to prevent falls. ? Continue physical therapy/occupational therapy. DS: Summary Time Spent with Patient Time attestation: Total time spent providing and/or coordinating discharge services:60 Exam Narrative: Exam Narrative: GENERAL: Morbidly obese in no apparent distress. HEAD: normocephalic, atraumatic. EYES: PERRL. Sclera clear/white. Vision is grossly intact. EARS: External ears normal, auditory canals clear and without drainage, TMs normal without perforation. Hearing grossly intact. NOSE: External nose normal with no obvious nasal discharge, nares without redness, no rhinorrhea. THROAT: Mucous membranes moist, posterior pharynx clear. NECK: Neck supple, non-tender without lymphadenopathy, masses or thyromegaly. CARDIOVASCULAR: Regular rate and rhythm without murmurs, gallops, or rubs. RESPIRATORY: Clear to auscultation. Breath sounds equal bilaterally. No wheezes, rales, or rhonchi. GASTROINTESTINAL: Abdomen soft, non-tender, nondistended. Bowel sounds are active. Ostomy bag in place with soft brown stool SKIN: warm, intact
[2020-04-07 07:48] VITALS: BP 120/67; PULSE 82; RESP 18; TEMP 36.1; O2SAT 96
[2020-04-07] MEDS: allopurinoL 300 MG TABLET PO (08:49)
[2020-04-07] MEDS: hydroCHLOROthiazide 25 MG TABLET PO (08:50)
[2020-04-07] MEDS: TAMSULOSIN HCL 0.4 MG CAPSULE PO (08:50)
[2020-04-07] MEDS: FERROUS SULFATE 324 MG TABLET PO (08:50)
[2020-04-07] MEDS: levoFLOXacin TAB 500 MG, levoFLOXacin TAB 250 MG 750 MG PO (08:50)
[2020-04-07] MEDS: PANTOPRAZOLE 40 MG TABLET PO (08:50)
[2020-04-07] MEDS: ATORVASTATIN 40 MG TABLET PO (08:50)
[2020-04-07] MEDS: POTASSIUM CHLORIDE 20 MEQ TABLET PO (08:50)
[2020-04-07] MEDS: VALSARTAN 80 MG TABLET 160 MG PO (08:50)
[2020-04-07] MEDS: ASPIRIN 81 MG ENTERIC TABLET PO (08:51)
[2020-04-07] MEDS: DOCUSATE SODIUM 100 MG CAPSULE PO (08:51)
--- NOTE | 2020-04-07 11:18 | PC.NURSE ---
fax and call residential home health with discharge instructions, summary, and hospitalist summary
--- NOTE | 2020-04-07 11:34 | PC.NURSE ---
spoke with Micki from [facility] reported patient was being discharge to home. Rental equipment with reference number [id number] needs to be picked. [employer] gave same reference number and will send someone out to get equipment.
--- NOTE | 2020-04-07 11:40 | PC.NURSE ---
All discharge instructions and education reviewed with patient.Patient reports understanding,denies any questions at discharge. All belongings gathered together for patient. Belongings sent home with patient. Patient discharged to home, transported via [facility], Left floor accompanied by EMS.
--- NOTE | 2020-04-07 14:17 | PC.NURSE ---
[address] here to cook pickled meat bariatric bed and chair. Susana Boss, maintenance help nurse take equipment to dock back of hospital to load up.
--- NOTE | 2020-04-13 14:02 | PC.NURSE ---
Pt states he understood his instructions and they did a fine job .
== END 2020-04-07 11:45 | disposition home health service (06) | DRG 556 ==
PROVIDERS: Nurse Practitioner; Nurse Practitioner Family; Admitting Provider Emergency Medicine; PCP Family Medicine; Visit Provider Emergency Medicine
DX: M62.81 Muscle weakness (generalized) (principal); N39.0 Urinary tract infection, site not specified; M62.82 Rhabdomyolysis; D50.9 Iron deficiency anemia, unspecified; E66.01 Morbid (severe) obesity due to excess calories; E03.9 Hypothyroidism, unspecified; E11.42 Type 2 diabetes mellitus with diabetic polyneuropathy; E78.5 Hyperlipidemia, unspecified; K21.9 Gastro-esophageal reflux disease without esophagitis; N40.0 Benign prostatic hyperplasia without lower urinary tract symptoms; Z93.3 Colostomy status
CPT/HCPCS: 36415; 80048; 80053; 81001; 82550; 83735; 84100; 84439; 84443; 85025; 85027; 87086; 87088; 97110; 97161; 97165; 97530; 97535; A9270; J1815

== ENCOUNTER 2020-04-18 16:22 | Outpatient (NON) | payer MEDICARE, SELFPAY ==
[2020-04-18 16:43] LABS: Add Urine Microscopic? NO; Appearance Urine Clear (Clear); Bilirubin Urine Negative (Negative); Blood Urine Negative (Negative); Color Urine Yellow (Yellow); Glucose Urine UA Negative (Negative); Ketones Urine Negative (Negative); Leukocyte Esterase Ur Negative (Negative); Nitrate Urine Negative (Negative); Protein Urine Negative (Negative); Specific Grav Ur 1.015 (1.010-1.020); Urobilinogen Urine 0.2 mg/dL (0.2-1.0)
[2020-04-18 16:50] LABS: Hemoglobin A1C 6.1 % (<5.7)
== END 2020-04-18 16:23 ==
PROVIDERS: Visit Provider Family Medicine
DX: N39.0 Urinary tract infection, site not specified (principal); E11.42 Type 2 diabetes mellitus with diabetic polyneuropathy
CPT/HCPCS: 36415; 81003; 83036; 87086

== ENCOUNTER 2020-12-25 07:36 | Emergency (ER) | payer MEDICARE, MEDICAID, SELFPAY ==
--- NOTE | ~2020-12-25 | XR_ITS ---
EXAMINATION: XR chest 1V portable DATE: 12/25/2020 08:11 INDICATION: Left hemiparesis. TECHNIQUE: A single frontal view of the chest was obtained. COMPARISON: Chest single view 03/23/2020, chest CT 05/20/2016 FINDINGS: There is mild atelectasis at left lung base. No pleural effusion or pneumothorax. The heart size is normal. There is prominent extrapleural fat. IMPRESSION: 1. Mild atelectasis at left lung base. Reviewed, dictated and finalized at location A.
[2020-12-25 07:40] VITALS: BP 118/54; PULSE 83; RESP 24; TEMP 36.6; O2SAT 100
--- NOTE | 2020-12-25 07:46 | ECG_ITS ---
Measurements Intervals [place] Rate: 83 P: 37 SC: 264 QRS: -71 QRSD: 107 T: -5 QT: 397 QTc: 469 Interpretive Statements SINUS RHYTHM WITH FIRST DEGREE AV BLOCK VENTRICULAR PREMATURE COMPLEX RIGHT BUNDLE BRANCH BLOCK LOW QRS VOLTAGE IN PRECORDIAL LEADS LEFT ANTERIOR FASCICULAR BLOCK BASELINE ARTIFACT- I, II, III, AVR, AVL, AVF, V1, V4-V6 ABNORMAL ECG Electronically Signed On 12-25-2020 8:03:07 CDT by Robin Ford D.O.
--- NOTE | 2020-12-25 07:56 | PC.NURSE ---
pt states his weight his [address] staff at bedside and state pt is too large for ct scanner table.
--- NOTE | 2020-12-25 07:57 | PC.NURSE ---
dr marrero speaking with dr maya at [facility] in [place].
[2020-12-25 08:07] LABS: Basophils Absolute Auto 0.05 K/mm3 (0.00-0.10); Basophils Percent Auto 0.6 % (0.0-1.0); Eosinophils Absolute Auto 0.39 K/mm3 (0.02-0.50); Eosinophils Percent Auto 4.5 % (1.0-6.0); Hematocrit 30.2 % (37.0-46.0); Hemoglobin 8.7 g/dL (12.4-15.3); Immature Granulocyte Absolute 0.08 K/mm3 (0.00-0.00); Immature Granulocyte Percent A 0.9 % (0.0-0.0); Lymphocytes Absolute Auto 0.93 K/mm3 (1.10-4.50); Lymphocytes Percent Auto 10.8 % (18.0-42.0); Mean Corpuscular HGB Conc 28.8 g/dL (32.0-36.0); Mean Corpuscular Hemoglobin 22.6 pg (27.0-31.0); Mean Corpuscular Volume 78.4 fL (78.0-102.0); Mean Platelet Volume 9.4 fl (8.7-11.0); Monocytes Absolute Auto 0.91 K/mm3 (0.10-0.90); Monocytes Percent Auto 10.6 % (2.0-11.0); Neutrophils Absolute Auto 6.3 K/mm3 (1.7-7.2); Neutrophils Percent Auto 72.6 % (50.0-70.0); Platelet Count Result 248 K/mm3 (150-420); Red Blood Count 3.85 M/mm3 (4.70-6.10); Red Cell Distribution Width 18.2 % (11.6-14.4); White Blood Count 8.6 K/mm3 (4.8-10.8)
[2020-12-25 08:08] LABS: Base Excess ABG 3.3 mmol/L (0-2); HCO3 ABG 28.2 mmol/L (23-29); PCO2 ABG 43.6 mmHg (35-45); PO2 ABG 111.1 mmHg (75-85); pH ABG 7.43 (7.35-7.45)
[2020-12-25 08:11] LABS: Device ROOM AIR; Modified Allen's Test Pass; Oxygen Saturation ABG 98.1 % (95-97); Site Drawn RIGHT BRACHIAL
--- NOTE | 2020-12-25 08:11 | ED.NEUROSD ---
HPI - Neuro Symptoms/Deficit General Chief Complaint: Suspected CVA Stated Complaint: AMBULANCE Time Seen by Provider: 12/25/20 07:40 Source: patient Mode of arrival: EMS Limitations: no limitations History of Present Illness HPI Narrative: Pagett 5-year-old man with a history of hypertension, morbid obesity, diabetes, and chronic lower extremity edema brought to the emergency department this morning after he called for dizziness that started at 4:00 a.m. and weakness and numbness (like they are asleep) in his left arm and leg that started since then. He also complains of some mild shortness of breath. Patient states he does not know when the arm and leg symptoms started. He states he has had no recent falls, recent surgeries, chest pain, nausea or vomiting, cough or cold symptoms, or abdominal pain. patient states was in his usual state of health when he went to bed last night. He last took his medications yesterday morning. His blood sugar per EMS is 139. Onset (ago): hour(s) (4.5) Time: 04:00 Location: left arm, left leg and ataxia History of same: No Severity: moderate Quality: weak, numb and tingling Relieving factors: time Exacerbating factors: none Associated symptoms: shortness of breath Treatments Prior to Arrival: none Related Data Home Medications Medication Instructions Recorded Confirmed aspirin 81 mg tablet,delayed 81 mg PO DAILY 07/06/19 09/13/20 release docusate sodium 100 mg capsule 100 mg PO BID PRN cap 04/19/20 09/13/20 Allergies Allergy/AdvReac Type Severity Reaction Status Date / Time No Known Allergies Allergy Verified 11/20/20 13:01 Review of Systems Review of Systems: All systems reviewed & are unremarkable except as noted in HPI and below Constitutional: Constitutional: Reports lethargy Eyes: Eyes: Denies change in vision, Denies loss of vision and Denies other visual disturbances ENT: Denies dysphagia, Denies nasal congestion and Denies sore throat Cardiovascular: Cardiovascular: Denies chest pain, Denies syncope and Reports leg edema (chronic) Respiratory: Respiratory: Denies cough, Denies excessive phlegm production and Reports dyspnea Gastrointestinal: Gastrointestinal: Denies hematochezia, Denies diarrhea, Denies nausea and Denies vomiting Musculoskeletal: Musculoskeletal: Reports as per HPI, Reports abnormal gait, Reports muscle weakness, Reports numbness and Reports tingling Integumentary/Breasts: Comments: Erythema in the groin. Chronic edema of the lower extremities bilaterally Neurologic: Reports Normal hearing present, Reports lack of coordination, Reports focal weakness, Denies loss of vision, Denies memory loss, Reports numbness, Reports paresthesias and Reports disequilibrium Hematologic/Lymphatic: Hematologic/Lymphatic: Denies easy bleeding and Denies easy bruising Allergic/Immunologic: Allergic/Immunologic: Denies urticaria, Denies throat swelling and Denies tongue swelling PMFSH Past Medical History Medical History Chest heaviness First degree atrioventricular block Gangrene Gout Ichthyosis Ischemic bowel disease Morbid obesity with BMI of 60.0-69.9, adult Positive D-dimer Sepsis UTI (urinary tract infection), uncomplicated Surgical History Surgical History History of back surgery History of creation of ostomy Family History Family History Father Family history of pancreatic cancer Social History Social History Smoking status: Never smoker Second hand tobacco smoke exposure: No Alcohol intake: former Drinks per week: 3 Substance use: never Substance use type: does not use Gender identity (if verbalized by the patient): Male Spiritual care concerns: No Exam Const: General: cooperative Nutritional Murali
[2020-12-25 08:19] LABS: INR 1.1; Partial Thromboplastin Time 23.9 SEC (23.90-30.70); Prothrombin Time 11.7 Seconds (9.50-12.10)
[2020-12-25 08:26] LABS: Alanine Aminotransferase 16 U/L (16-63); Albumin Level 2.9 g/dL (3.4-5.0); Alkaline Phosphatase 66 U/L (46-116); Anion Gap 11 mmol/L (8-16); Aspartate Amino Transferase 18 U/L (15-37); Bilirubin,Total 0.4 mg/dL (0.00-1.00); Blood Urea Nitrogen 22 mg/dL (7-18); Calcium 8.3 mg/dL (8.5-10.1); Carbon Dioxide 29 mmol/L (21-32); Chloride 101 mmol/L (98-108); Estimated CRCL calculation 138 ml/min; Estimated Glomerular Filt Rate > 60; Glucose 149 mg/dL (70-99); Osmolality Calculated 298 mOsm/kg (285-295); Potassium 3.9 mmol/L (3.5-5.1); Sodium 141 mmol/L (136-145); Total Protein 6.1 g/dL (6.4-8.2); Troponin I 9.1 ng/L (0.00-60.4)
[2020-12-25 08:33] LABS: Add Urine Microscopic? NO; Appearance Urine Clear (Clear); Bilirubin Urine Negative (Negative); Blood Urine Negative (Negative); Color Urine Light Yellow (Yellow); Glucose Urine UA Negative (Negative); Ketones Urine Negative (Negative); Leukocyte Esterase Ur Negative LEU/UL (Negative); Nitrate Urine Negative (Negative); Protein Urine Negative (Negative); Specific Grav Ur 1.025 (1.010-1.020); Urobilinogen Urine 0.2 mg/dL (0.2-1.0)
[2020-12-25 08:40] VITALS: BP 124/58; PULSE 83; RESP 20; O2SAT 98
--- NOTE | 2020-12-25 08:40 | PC.NURSE ---
Pt transported to [facility] in [place] per KEE, [facility] updated with pts lab results and covid test result. results also faxed.
[2020-12-25 08:42] LABS: SARS-CoV-2 Ag Negative (Negative)
== END 2020-12-25 08:42 | disposition short-term general hospital (02) ==
PROVIDERS: Emergency Provider Emergency Medicine; PCP Family Medicine
DX: R42 Dizziness and giddiness (principal); G81.90 Hemiplegia, unspecified affecting unspecified side; E66.01 Morbid (severe) obesity due to excess calories; D64.9 Anemia, unspecified; M10.9 Gout, unspecified; R06.02 Shortness of breath; Z20.822 Contact with and (suspected) exposure to COVID-19
CPT/HCPCS: 36415; 36600; 71045; 80053; 81003; 82375; 82805; 83050; 84484; 85025; 85610; 85730; 87426; 93005; 99285; C9803

== ENCOUNTER 2021-01-02 18:28 | Inpatient (IN) | payer MEDICARE, MEDICAID, SELFPAY ==
--- NOTE | 2021-01-02 18:15 | PC.NURSE ---
Patient admitted to room 226. Transferred into bed using maxislide. Oriented to room and call light,
[2021-01-02 19:30] VITALS: O2SAT 96
[2021-01-02 19:31] VITALS: BP 135/76; PULSE 66; RESP 20; TEMP 36.6; O2SAT 95
[2021-01-02 21:38] VITALS: PULSE 68
[2021-01-02] MEDS: METOPROLOL TARTRATE 50 MG TAB PO (21:38)
[2021-01-02] MEDS: INSULIN DETEMIR 100 UNITS/ML 60 UNITS SUB-Q (21:41)
[2021-01-02 22:46] VITALS: PULSE 68; RESP 20; O2SAT 96
[2021-01-02 23:59] VITALS: BP 122/67; PULSE 68; RESP 20; TEMP 36.3; O2SAT 96
[2021-01-03] VITALS: BP 122/67; PULSE 68; RESP 20; TEMP 36.3; O2SAT 96
--- NOTE | 2021-01-03 04:37 | PM.IMHP ---
H&P: HPI History of Present Illness Date/Time: 01/03/21 04:37 Chief Complaint: MR Duran is transferred her for physical therapy and strengthening. Narrative: He had some transient weakness in his lower extremities and dizziness at home. He was taken into a local ER and was seen there. Because of concerns he might have been having a TIA or CVA, he was transferred to [facility] and seen by a medicine and stroke team. He was worked up with a CT head that was negative, carotid angiogram showed no carotid or vertebral stenosis. He did have a spinal stenosis at C 3-4 that was noted, but apparently not causing any pain. Ct angiogram of saray, and CT perfusion of brain were negative. This episode was felt to be caused by some transient hypotension according to the stroke team. He has multiple medical comorbidities that could be playing into this, including his diabetes and hypertension. Review of Systems Constitutional: Constitutional: Reports no additional constitutional complaints Eyes: Eyes: Reports no additional eye complaints ENT: Reports system reviewed and no additional complaints, except as documented Cardiovascular: Cardiovascular: Reports no additional cardiovascular complaints Respiratory: Respiratory: Reports no additional respiratory complaints Gastrointestinal: Gastrointestinal: Reports no additional gastrointestinal complaints Genitourinary: Genitourinary: Reports no additional male genitourinary complaints Musculoskeletal: Musculoskeletal: Reports no additional musculoskeletal complaints Integumentary/Breasts: Comments: Rash on flap from groin, likely yeast Neurologic: Reports system reviewed and no additional complaints, except as documented Psychiatric: Psychiatric: Reports no additional psychiatric complaints [facility] Past Medical History Medical History (Updated 01/03/21 @ 05:39 by Oral Iverson MD) Chest heaviness Chronic GERD Diabetes mellitus First degree atrioventricular block Gangrene Gout Hyperlipidemia Ichthyosis Iron deficiency anemia Ischemic bowel disease Morbid obesity with BMI of 60.0-69.9, adult Positive D-dimer Sepsis UTI (urinary tract infection), uncomplicated Surgical History Surgical History History of back surgery History of creation of ostomy Family History Family History Father Family history of pancreatic cancer Social History Social History Smoking status: Never smoker Second hand tobacco smoke exposure: No Alcohol intake: never Drinks per week: 3 Substance use: never Substance use type: does not use Gender identity (if verbalized by the patient): Male Spiritual care concerns: No Meds Home Medications and Allergies Home Medications Medication Instructions Recorded Confirmed Type triamcinolone acetonide 0.1 % 1 applic TOPICAL BID #80 gm 04/24/20 01/02/21 Rx topical cream atorvastatin 40 mg tablet 40 mg PO DAILY #90 tablet 09/26/20 01/02/21 Rx hydrochlorothiazide 25 mg tablet 25 mg PO DAILY #30 tablet 10/08/20 01/02/21 Rx insulin detemir U-100 100 unit/mL 60 unit SUB-Q HS #20 ml 10/08/20 01/02/21 Rx subcutaneous solution levothyroxine 88 mcg tablet 88 mcg PO DAILY #30 tablet 10/08/20 01/02/21 Rx metoprolol tartrate 50 mg tablet 50 mg PO BID 90 Days #60 tablet 10/08/20 01/02/21 Rx tamsulosin 0.4 mg capsule 0.4 mg PO DAILY #30 cap 10/08/20 01/02/21 Rx allopurinol 300 mg PO DAILY 01/02/21 01/02/21 History furosemide 60 mg PO DAILY PRN 01/02/21 01/02/21 History hydroxyzine HCl 25 mg PO QID PRN 01/02/21 01/02/21 History pantoprazole 40 mg PO BID 01/02/21 01/02/21 History potassium chloride 20 meq PO DAILY 01/02/21 01/02/21 History Allergies Allergy/AdvReac Type Severity Reaction Status Date / Time No Known Allergies Allergy Verified 11/20/20 13:01 Vital Signs Vital Signs
[2021-01-03 05:26] VITALS: O2SAT 95
--- NOTE | 2021-01-03 06:03 | PC.NURSE ---
[facility] called and said they needed a creatinine lab value on the patient to determine dosing for lovenox.
--- NOTE | 2021-01-03 06:21 | PC.NURSE ---
Dr. Iverson notified of pharmacy's call; Dr. Iverson with a patient at this time and message left with ER nurse.
[2021-01-03] MEDS: LEVOTHYROXINE SODIUM 88 MCG TABLET PO (06:34)
--- NOTE | 2021-01-03 06:45 | PC.NURSE ---
Dr. Iverson notified of Yonas's request for a current creatinine level to dose lovenox; No new orders at this time.
[2021-01-03 07:45] VITALS: BP 127/61; PULSE 60; RESP 18; TEMP 36.3; O2SAT 99
[2021-01-03 07:55] LABS: Basophils Absolute Auto 0.03 K/mm3 (0.00-0.10); Basophils Percent Auto 0.5 % (0.0-1.0); Eosinophils Percent Auto 6.1 % (1.0-6.0); Hematocrit 36.2 % (37.0-46.0); Hemoglobin 9.7 g/dL (12.4-15.3); Immature Granulocyte Absolute 0.12 K/mm3 (0.00-0.00); Immature Granulocyte Percent A 1.8 % (0.0-0.0); Lymphocytes Absolute Auto 0.78 K/mm3 (1.10-4.50); Lymphocytes Percent Auto 11.9 % (18.0-42.0); Mean Corpuscular HGB Conc 26.8 g/dL (32.0-36.0); Mean Corpuscular Hemoglobin 23.1 pg (27.0-31.0); Mean Corpuscular Volume 86.2 fL (78.0-102.0); Mean Platelet Volume 8.8 fl (8.7-11.0); Monocytes Absolute Auto 0.67 K/mm3 (0.10-0.90); Monocytes Percent Auto 10.2 % (2.0-11.0); Neutrophils Absolute Auto 4.6 K/mm3 (1.7-7.2); Neutrophils Percent Auto 69.5 % (50.0-70.0); Platelet Count Result 221 K/mm3 (150-420); Red Cell Distribution Width 20.4 % (11.6-14.4); White Blood Count 6.6 K/mm3 (4.8-10.8)
[2021-01-03 08:00] LABS: Glucose Point of Care 128 mg/dl (65-105)
[2021-01-03 08:18] LABS: Alanine Aminotransferase 20 U/L (16-63); Alkaline Phosphatase 62 U/L (46-116); Anion Gap 6 mmol/L (8-16); Aspartate Amino Transferase 24 U/L (15-37); Bilirubin,Total 0.5 mg/dL (0.00-1.00); Blood Urea Nitrogen 11 mg/dL (7-18); Calcium 8.8 mg/dL (8.5-10.1); Carbon Dioxide 41 mmol/L (21-32); Chloride 98 mmol/L (98-108); Estimated Glomerular Filt Rate > 60; Glucose 123 mg/dL (70-99); Osmolality Calculated 300 mOsm/kg (285-295); Potassium 3.8 mmol/L (3.5-5.1); Sodium 145 mmol/L (136-145); Total Protein 6.5 g/dL (6.4-8.2)
[2021-01-03] MEDS: TRIAMCINOLONE ACET 0.1% CREAM 80 GM TUBE 1 APPLIC TOPICAL (10:00)
[2021-01-03 10:12] VITALS: PULSE 60
[2021-01-03] MEDS: PANTOPRAZOLE 40 MG TABLET PO ×2 (10:12→17:39)
[2021-01-03] MEDS: METOPROLOL TARTRATE 50 MG TAB PO ×2 (10:12→21:02)
[2021-01-03] MEDS: ATORVASTATIN 40 MG TABLET PO (10:12)
[2021-01-03] MEDS: allopurinoL 300 MG TABLET PO (10:12)
[2021-01-03] MEDS: ENOXAPARIN 40 MG/0.4 ML SYRINGE SUB-Q (10:13)
[2021-01-03] MEDS: hydroCHLOROthiazide 25 MG TABLET PO (10:13)
[2021-01-03] MEDS: TAMSULOSIN HCL 0.4 MG CAPSULE PO (10:13)
[2021-01-03] MEDS: POTASSIUM CHLORIDE 20 MEQ TABLET PO (10:13)
[2021-01-03 12:17] LABS: Glucose Point of Care 123 mg/dl (65-105)
--- NOTE | 2021-01-03 13:05 | PM.IMPN ---
Progress Note: A&P Assessment and Plan (1) Generalized muscle weakness: Code(s): M62.81 - Muscle weakness (generalized) <Franco Reese CLIENT SERVICES ACCOUNT MANAGER-C - Last Filed: 01/03/21 13:46> Status: Chronic <Franco Reese, CLIENT SERVICES ACCOUNT MANAGER-C - Last Filed: 01/03/21 13:46> Assessment and Plan: Pt to work with PT/OT for: Relieve pain, Improve movement or ability, Prevent or recover from an injury, Prevent disability, Work on balance to prevent a slip or fall, Learn to use assistive devices like a walker or cane <Franco Reese CLIENT SERVICES ACCOUNT MANAGER-C - Last Filed: 01/03/21 13:46> (2) Candidiasis: Code(s): B37.9 - Candidiasis, unspecified <Franco Reese CLIENT SERVICES ACCOUNT MANAGER-C - Last Filed: 01/03/21 13:46> Status: Acute <Franco Reese CLIENT SERVICES ACCOUNT MANAGER-C - Last Filed: 01/03/21 13:46> Assessment and Plan: DC'ed Triamcinolone, started Nystatin Cream BID, Wash clean dry area prior to application of cream <Franco Reese CLIENT SERVICES ACCOUNT MANAGER-C - Last Filed: 01/03/21 13:46> (3) History of creation of ostomy: Code(s): Z93.9 - Artificial opening status, unspecified <Franco Reese CLIENT SERVICES ACCOUNT MANAGER-C - Last Filed: 01/03/21 13:46> Status: Acute <Franco Reese CLIENT SERVICES ACCOUNT MANAGER-C - Last Filed: 01/03/21 13:46> Assessment and Plan: Pt takes care of his colostomy needs on his own. <Franco Reese CLIENT SERVICES ACCOUNT MANAGER-C - Last Filed: 01/03/21 13:46> (4) Gout: Code(s): M10.9 - Gout, unspecified <Franco Reese CLIENT SERVICES ACCOUNT MANAGER-C - Last Filed: 01/03/21 13:46> Status: Chronic <Franco Reese CLIENT SERVICES ACCOUNT MANAGER-C - Last Filed: 01/03/21 13:46> Assessment and Plan: Continue Allopurinol <Franco Reese CLIENT SERVICES ACCOUNT MANAGER-C - Last Filed: 01/03/21 13:46> (5) T2DM (type 2 diabetes mellitus): Qualifiers: Diabetes mellitus complication detail: with polyneuropathy Diabetes mellitus complication status: with neurologic complications Diabetes mellitus prison insulin use: with prison use Qualified Code(s): E11.42 - Type 2 diabetes mellitus with diabetic polyneuropathy; Z79.4 - local intermodal truck driver (current) use of insulin <Franco MyersJeffery GiancarloLAUREN loza-C - Last Filed: 01/03/21 13:46> Code(s): E11.9 - Type 2 diabetes mellitus without complications <Franco MyersJeffery GiancarloLAUREN loza-C - Last Filed: 01/03/21 13:46> Status: Chronic <Franco MondragonLAUREN loza-C - Last Filed: 01/03/21 13:46> Assessment and Plan: Continue Detemir, SSI, Glucose monitoring, hypoglycemic protocol in place, diabetic diet. <Franco MyersJeffery Reese APN-C - Last Filed: 01/03/21 13:46> (6) Hyperlipidemia: Code(s): E78.5 - Hyperlipidemia, unspecified <Franco MyersJeffery GiancarloLAUREN loza-C - Last Filed: 01/03/21 13:46> Status: Chronic <Franco MondragonLAUREN loza-C - Last Filed: 01/03/21 13:46> Assessment and Plan: Continue Atorvastatin <Franco MondragonLAUREN loza-C - Last Filed: 01/03/21 13:46> (7) Hypertension: Code(s): I10 - Essential (primary) hypertension <Franco MyersJeffery GiancarloLAUREN loza-C - Last Filed: 01/03/21 13:46> Status: Chronic <Franco MyersJeffery GiancarloLAUREN loza-C - Last Filed: 01/03/21 13:46> Assessment and Plan: Continue HCTZ, Metoprolol, monitor VS, make adjustments as needed to medications <Franco MyersJeffery Reese APN-C - Last Filed: 01/03/21 13:46> (8) Chronic GERD: Code(s): K21.9 - Gastro-esophageal reflux disease without esophagitis <Franco MyersJeffery Reese APN-C - Last Filed: 01/03/21 13:46> Status: Chronic <Franco CECIL Schwarz - Last Filed: 01/03/21 13:46> Assessment and Plan: Continue Protonix PO <CECIL Jett - Last Filed: 01/03/21 13:46> (9) BPH (benign prostatic hyperplasia): Code(s): N40.0 - Benign prostatic hyperplasia without lower urinary tract symptoms <CECIL Jett - Last Filed: 01/03/21 13:46> Status: Chronic <CECIL Jett - Last Filed: 01/03/21 13:46> Assessment and Plan: Continue Tamsulosin <CECIL Jett - Last Filed: 01/03/21
[2021-01-03 16:50] VITALS: BP 124/50; PULSE 70; RESP 20; TEMP 36.9; O2SAT 94
[2021-01-03 17:43] LABS: Glucose Point of Care 191 mg/dl (65-105)
[2021-01-03 21:02] VITALS: PULSE 67
[2021-01-03] MEDS: INSULIN DETEMIR 100 UNITS/ML 60 UNITS SUB-Q (21:06)
[2021-01-03 21:28] LABS: Glucose Point of Care 212 mg/dl (65-105)
[2021-01-03] MEDS: MICONAZOLE NITRATE 2% CREAM 30 GM TUBE 1 APPLIC TOPICAL (21:29)
[2021-01-04] VITALS: BP 138/65; PULSE 67; RESP 18; TEMP 37.1; O2SAT 95
[2021-01-04 06:00] VITALS: PULSE 60; RESP 18; O2SAT 95
[2021-01-04] MEDS: LEVOTHYROXINE SODIUM 88 MCG TABLET PO (06:05)
--- NOTE | 2021-01-04 07:28 | PC.NURSE ---
OT in room to evaluate patient.
[2021-01-04 07:45] VITALS: BP 144/70; PULSE 61; RESP 18; TEMP 36.4; O2SAT 95
[2021-01-04 08:00] LABS: Glucose Point of Care 108 mg/dl (65-105)
[2021-01-04] MEDS: ENOXAPARIN 40 MG/0.4 ML SYRINGE SUB-Q (08:35)
[2021-01-04] MEDS: ATORVASTATIN 40 MG TABLET PO (08:35)
[2021-01-04] MEDS: hydroCHLOROthiazide 25 MG TABLET PO (08:35)
[2021-01-04] MEDS: POTASSIUM CHLORIDE 20 MEQ TABLET PO (08:35)
[2021-01-04 08:36] VITALS: PULSE 70
[2021-01-04] MEDS: PANTOPRAZOLE 40 MG TABLET PO ×2 (08:36→17:04)
[2021-01-04] MEDS: METOPROLOL TARTRATE 50 MG TAB PO ×2 (08:36→20:38)
[2021-01-04] MEDS: allopurinoL 300 MG TABLET PO (08:36)
[2021-01-04] MEDS: TAMSULOSIN HCL 0.4 MG CAPSULE PO (08:36)
[2021-01-04] MEDS: MICONAZOLE NITRATE 2% CREAM 30 GM TUBE 1 APPLIC TOPICAL ×2 (08:57→20:46)
[2021-01-04 11:50] LABS: Glucose Point of Care 138 mg/dl (65-105)
[2021-01-04] MEDS: TOLNAFTATE 1% POWDER 45 GM BTL 1 APPLIC TOPICAL ×2 (11:50→20:43)
[2021-01-04 16:45] VITALS: BP 125/85; PULSE 60; RESP 18; TEMP 36.4; O2SAT 95
[2021-01-04 17:02] LABS: Glucose Point of Care 154 mg/dl (65-105)
[2021-01-04 20:38] VITALS: PULSE 68
[2021-01-04] MEDS: INSULIN DETEMIR 100 UNITS/ML 60 UNITS SUB-Q (20:42)
[2021-01-04 20:58] LABS: Glucose Point of Care 212 mg/dl (65-105)
--- NOTE | 2021-01-04 23:05 | PC.NURSE ---
Completed bedside report. Updated board, and introduced to patient. Patient is resting comfortably in bed. Reports no pain, and does not have any needs at this time. Recently changed, including bedding.
[2021-01-05] VITALS (7 sets, daily range): BP systolic 127–142; BP diastolic 53–76; PULSE 55–67; RESP 16–20; TEMP 35.8–36.9; O2SAT 96–98
--- NOTE | 2021-01-05 02:05 | PC.NURSE ---
Patient is sleeping. Appears to be comfortable. Nurse call light is within reach.
[2021-01-05] MEDS: LEVOTHYROXINE SODIUM 88 MCG TABLET PO (06:30)
--- NOTE | 2021-01-05 06:47 | PC.NURSE ---
Patient was sleeping when medication was due at 0630. Patient woke before medication was ready. He asked to be moved to the chair to wait for breakfast. He was able to roll towards the side of the bed, and moved both of his legs off the bed to the floor with minimal assist. He was able to stand from a seated position on the side of the bed, and used his walker with an assist of 1 as he moved to the chair. He was positioned with a pillow behind his back, and two covers. Patient stated that he was comfortable, and did not need anything else at this time.
[2021-01-05 07:56] LABS: Glucose Point of Care 132 mg/dl (65-105)
[2021-01-05] MEDS: ENOXAPARIN 40 MG/0.4 ML SYRINGE SUB-Q (08:18)
[2021-01-05] MEDS: TAMSULOSIN HCL 0.4 MG CAPSULE PO (08:19)
[2021-01-05] MEDS: POTASSIUM CHLORIDE 20 MEQ TABLET PO (08:19)
[2021-01-05] MEDS: PANTOPRAZOLE 40 MG TABLET PO ×2 (08:19→17:10)
[2021-01-05] MEDS: hydroCHLOROthiazide 25 MG TABLET PO (08:19)
[2021-01-05] MEDS: METOPROLOL TARTRATE 50 MG TAB PO ×2 (08:19→21:02)
[2021-01-05] MEDS: allopurinoL 300 MG TABLET PO (08:20)
[2021-01-05] MEDS: ATORVASTATIN 40 MG TABLET PO (08:20)
[2021-01-05] MEDS: MICONAZOLE NITRATE 2% CREAM 30 GM TUBE 1 APPLIC TOPICAL ×2 (08:21→21:08)
[2021-01-05] MEDS: TOLNAFTATE 1% POWDER 45 GM BTL 1 APPLIC TOPICAL ×2 (08:21→21:10)
[2021-01-05 11:35] LABS: Glucose Point of Care 176 mg/dl (65-105)
[2021-01-05 21:06] LABS: Glucose Point of Care 160 mg/dl (65-105)
[2021-01-05] MEDS: INSULIN DETEMIR 100 UNITS/ML 60 UNITS SUB-Q (21:09)
[2021-01-06 06:00] VITALS: PULSE 70; RESP 18; O2SAT 96
[2021-01-06] MEDS: LEVOTHYROXINE SODIUM 88 MCG TABLET PO (06:01)
[2021-01-06 07:43] LABS: Glucose Point of Care 129 mg/dl (65-105)
[2021-01-06 08:00] VITALS: BP 143/72; PULSE 61; RESP 18; TEMP 35.9; O2SAT 93
[2021-01-06] MEDS: ENOXAPARIN 40 MG/0.4 ML SYRINGE SUB-Q (09:07)
[2021-01-06] MEDS: hydroCHLOROthiazide 25 MG TABLET PO (09:07)
[2021-01-06] MEDS: TAMSULOSIN HCL 0.4 MG CAPSULE PO (09:07)
[2021-01-06] MEDS: POTASSIUM CHLORIDE 20 MEQ TABLET PO (09:07)
[2021-01-06] MEDS: ATORVASTATIN 40 MG TABLET PO (09:07)
[2021-01-06] MEDS: PANTOPRAZOLE 40 MG TABLET PO ×2 (09:07→17:04)
[2021-01-06 09:08] VITALS: PULSE 61
[2021-01-06] MEDS: MICONAZOLE NITRATE 2% CREAM 30 GM TUBE 1 APPLIC TOPICAL (09:08)
[2021-01-06] MEDS: TOLNAFTATE 1% POWDER 45 GM BTL 1 APPLIC TOPICAL ×2 (09:08→21:12)
[2021-01-06] MEDS: allopurinoL 300 MG TABLET PO (09:08)
[2021-01-06] MEDS: METOPROLOL TARTRATE 50 MG TAB PO ×2 (09:08→21:03)
[2021-01-06 11:36] LABS: Glucose Point of Care 183 mg/dl (65-105)
[2021-01-06 16:00] VITALS: BP 135/56; PULSE 70; RESP 18; TEMP 37.1; O2SAT 96
[2021-01-06 16:35] LABS: Glucose Point of Care 220 mg/dl (65-105)
[2021-01-06 21:03] VITALS: PULSE 65
[2021-01-06] MEDS: INSULIN DETEMIR 100 UNITS/ML 60 UNITS SUB-Q (21:11)
[2021-01-06 23:50] VITALS: BP 139/61; PULSE 65; RESP 20; TEMP 36.6; O2SAT 94
[2021-01-07] MEDS: MICONAZOLE NITRATE 2% CREAM 30 GM TUBE 1 APPLIC TOPICAL ×3 (00:43→21:50)
[2021-01-07] MEDS: ACETAMINOPHEN 325 MG TABLET 650 MG PO (03:05)
[2021-01-07] MEDS: LEVOTHYROXINE SODIUM 88 MCG TABLET PO (06:05)
[2021-01-07 07:45] VITALS: BP 123/66; PULSE 62; RESP 18; TEMP 36.2; O2SAT 95
[2021-01-07 08:00] VITALS: PULSE 62; RESP 18; O2SAT 95
[2021-01-07 08:56] LABS: Glucose Point of Care 181 mg/dl (65-105)
[2021-01-07 08:57] LABS: Glucose Point of Care 137 mg/dl (65-105)
[2021-01-07 08:57] LABS: Glucose Point of Care 132 mg/dl (65-105)
[2021-01-07 09:18] VITALS: PULSE 72
[2021-01-07] MEDS: ENOXAPARIN 40 MG/0.4 ML SYRINGE SUB-Q (09:18)
[2021-01-07] MEDS: POTASSIUM CHLORIDE 20 MEQ TABLET PO (09:18)
[2021-01-07] MEDS: METOPROLOL TARTRATE 50 MG TAB PO ×2 (09:18→21:49)
[2021-01-07] MEDS: allopurinoL 300 MG TABLET PO (09:18)
[2021-01-07] MEDS: TAMSULOSIN HCL 0.4 MG CAPSULE PO (09:18)
[2021-01-07] MEDS: PANTOPRAZOLE 40 MG TABLET PO ×2 (09:19→18:14)
[2021-01-07] MEDS: TOLNAFTATE 1% POWDER 45 GM BTL 1 APPLIC TOPICAL ×2 (09:19→21:50)
[2021-01-07] MEDS: ATORVASTATIN 40 MG TABLET PO (09:19)
[2021-01-07 11:57] LABS: Glucose Point of Care 145 mg/dl (65-105)
[2021-01-07 11:59] LABS: Appearance Urine Clear (Clear); Bilirubin Urine Negative (Negative); Color Urine Yellow (Yellow); Glucose Urine UA Negative (Negative); Ketones Urine Negative (Negative); Leukocyte Esterase Ur Negative (Negative); Nitrate Urine Negative (Negative); Protein Urine Trace (Negative); Urobilinogen Urine 0.2 mg/dL (0.2-1.0); pH Urine 7.5 (5.0-8.0)
[2021-01-07 12:04] LABS: Add Urine Microscopic? YES; Bacteria Urine 1+ /hpf; Blood Urine Trace-Intact (Negative); Squamous Epithelial Cell Urine Few /hpf (Few); WBC Urine 0-3 /hpf (0-3)
[2021-01-07 12:05] LABS: Mucus Urine Few /lpf
--- NOTE | 2021-01-07 12:15 | PM.EVENT ---
Event Note Event Note Event Note: Pt informed the RN today that he has been feeling chills the last couple nights with a little night sweats. He is requesting a UA be performed. This was sent to the lab. No WBC, 1+ bacteria, 3-5 RBCs, trace blood and protein.
[2021-01-07 15:14] LABS: Glucose Point of Care 214 mg/dl (65-105)
[2021-01-07 16:00] VITALS: BP 145/61; PULSE 65; RESP 18; TEMP 36.4; O2SAT 97
[2021-01-07 16:15] LABS: Glucose Point of Care 177 mg/dl (65-105)
[2021-01-07 21:49] VITALS: PULSE 70
[2021-01-07] MEDS: INSULIN DETEMIR 100 UNITS/ML 60 UNITS SUB-Q (21:50)
[2021-01-07 21:52] LABS: Glucose Point of Care 233 mg/dl (65-105)
--- NOTE | 2021-01-07 23:15 | PC.NURSE ---
Bedside report completed. Patient was resting in bed, needed to use commode. Once the bed was deflated in the seat area, patient was able to swing his legs over to the floor, and sit up with minimal support. Able to use walker to walk to commode, seated himself, and used commode. Needs to be wiped after use. Able to walk back to bed using his walker, and needed help to swing one of his legs back onto the bed. Once head of bed was put down, able to pull himself up in bed, using the trapeze to situate himself in the center of the bed. Updated the board, refilled the mattress, and patient stated was ready to sleep.
[2021-01-08] VITALS: BP 125/61; PULSE 60; RESP 18; TEMP 37.1; O2SAT 97
--- NOTE | 2021-01-08 02:28 | PC.NURSE ---
Patient rang for the commode. After deflating the seat of the mattress, patient was able to come to a seated position on the side of the bed with minimal assistance. Patient was able to use his walker to move to the commode, and while on the commode changed the bag on his colostomy bag. He was able to move back to the bed, and brought both legs onto the bed, using the rails of the bed and the trapeze to situate himself on the mattress. The mattress was reinflated, and the patient was resting comfortably.
[2021-01-08] MEDS: LEVOTHYROXINE SODIUM 88 MCG TABLET PO (06:44)
--- NOTE | 2021-01-08 06:45 | PC.NURSE ---
Patient woke up when brought medication in. Needed to use the toilet. Was able to get out of bed with minimal assist, and walked to commode using walker. After using the commode, patient moved to recliner, and was settled in there to wait for breakfast. Patient was comfortable, and not in need of anything else at that time.
[2021-01-08 07:55] VITALS: BP 127/73; PULSE 70; RESP 18; TEMP 36; O2SAT 97
[2021-01-08 08:00] VITALS: PULSE 70; RESP 18; O2SAT 97
[2021-01-08 08:19] LABS: Glucose Point of Care 147 mg/dl (65-105)
[2021-01-08] MEDS: allopurinoL 300 MG TABLET PO (09:32)
[2021-01-08 09:33] VITALS: PULSE 70
[2021-01-08] MEDS: TAMSULOSIN HCL 0.4 MG CAPSULE PO (09:33)
[2021-01-08] MEDS: MICONAZOLE NITRATE 2% CREAM 30 GM TUBE 1 APPLIC TOPICAL ×2 (09:33→20:35)
[2021-01-08] MEDS: PANTOPRAZOLE 40 MG TABLET PO ×2 (09:33→17:10)
[2021-01-08] MEDS: POTASSIUM CHLORIDE 20 MEQ TABLET PO (09:33)
[2021-01-08] MEDS: ENOXAPARIN 40 MG/0.4 ML SYRINGE SUB-Q (09:33)
[2021-01-08] MEDS: ATORVASTATIN 40 MG TABLET PO (09:33)
[2021-01-08] MEDS: METOPROLOL TARTRATE 50 MG TAB PO ×2 (09:33→20:33)
[2021-01-08] MEDS: TOLNAFTATE 1% POWDER 45 GM BTL 1 APPLIC TOPICAL ×2 (09:34→20:34)
[2021-01-08 11:39] LABS: Glucose Point of Care 119 mg/dl (65-105)
--- NOTE | 2021-01-08 13:13 | PCPTNOTE ---
1300 - PT attended patient care confrence. patient, PT, and social worker delinquency prevention in attendance. patient was informed of current progress, and plan to DC to home [facility]. patient was in agreement of plan, and reports he would like to leave tomorrow around 1pm. patient to have residential home health PT evaluation when home. GINA
[2021-01-08 15:45] VITALS: BP 136/66; PULSE 59; RESP 18; TEMP 36.4; O2SAT 94
[2021-01-08 17:39] LABS: Glucose Point of Care 129 mg/dl (65-105)
[2021-01-08 20:33] VITALS: PULSE 78
[2021-01-08] MEDS: INSULIN DETEMIR 100 UNITS/ML 60 UNITS SUB-Q (20:41)
[2021-01-08 20:43] LABS: Glucose Point of Care 197 mg/dl (65-105)
[2021-01-09] VITALS: BP 127/41; PULSE 60; RESP 20; TEMP 36.3; O2SAT 95
[2021-01-09] MEDS: ACETAMINOPHEN 325 MG TABLET 650 MG PO (03:56)
[2021-01-09] MEDS: LEVOTHYROXINE SODIUM 88 MCG TABLET PO (06:08)
[2021-01-09 07:24] LABS: Glucose Point of Care 155 mg/dl (65-105)
[2021-01-09 08:00] VITALS: BP 118/65; PULSE 72; RESP 18; TEMP 36.1; O2SAT 96
--- NOTE | 2021-01-09 08:55 | P.DS_ITS ---
DS: Admitting Diagnosis Admitting Diagnosis Generalized weakness/ physical deconditioning <SARAH CastroC - Last Filed: 01/09/21 09:37> DS: Discharge Diagnosis Discharge Diagnosis (1) Generalized muscle weakness: Code(s): M62.81 - Muscle weakness (generalized) <SANGITA Castro-C - Last Filed: 01/09/21 09:37> Status: Chronic <NICHOLAS Castro - Last Filed: 01/09/21 09:37> Assessment and Plan: Pt to work with PT/OT for: Relieve pain, Improve movement or ability, Prevent or recover from an injury, Prevent disability, Work on balance to prevent a slip or fall, Learn to use assistive devices like a walker or cane * Home with home health <NICHOLAS Castro - Last Filed: 01/09/21 09:37> (2) Candidiasis: Code(s): B37.9 - Candidiasis, unspecified <SARAH CastroC - Last Filed: 01/09/21 09:37> Status: Acute <SANGITA Castro-C - Last Filed: 01/09/21 09:37> Assessment and Plan: DC'ed Triamcinolone, started Nystatin Cream BID, Wash clean dry area prior to application of cream <NICHOLAS Castro - Last Filed: 01/09/21 09:37> (3) History of creation of ostomy: Code(s): 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 <NICHOLAS Castro - Last Filed: 01/09/21 09:37> (4) Gout: Code(s): M10.9 - Gout, unspecified <SANGITA Castro-C - Last Filed: 01/09/21 09:37> Status: Chronic <SANGITA Castro-C - Last Filed: 01/09/21 09:37> Assessment and Plan: Continue Allopurinol <Shanta SolNICHOLAS - Last Filed: 01/09/21 09:37> (5) T2DM (type 2 diabetes mellitus): Qualifiers: Diabetes mellitus complication detail: with polyneuropathy Diabetes mellitus complication status: with neurologic complications Diabetes mellitus longterm insulin use: with longterm use Qualified Code(s): E11.42 - Type 2 diabetes mellitus with diabetic polyneuropathy; Z79.4 - salvage determiner (current) use of insulin <Shanta ParisiNICHOLAS Cardoso - Last Filed: 01/09/21 09:37> Code(s): E11.9 - Type 2 diabetes mellitus without complications <Shanta ParisiNICHOLAS Cardoso - Last Filed: 01/09/21 09:37> Status: Chronic <Shanta SolSANGITAVeronicaPam - Last Filed: 01/09/21 09:37> Assessment and Plan: Continue Detemir, SSI, Glucose monitoring, hypoglycemic protocol in place, diabetic diet. * Continue home meds on discharge <Shanta ParisiNICHOLAS Cardoso - Last Filed: 01/09/21 09:37> (6) Hyperlipidemia: Code(s): E78.5 - Hyperlipidemia, unspecified <Shanta SolNICHOLAS - Last Filed: 01/09/21 09:37> Status: Chronic <Shanta SolSANGITAVeronicaPam - Last Filed: 01/09/21 09:37> Assessment and Plan: Continue Atorvastatin <Shanta Meza NICHOLAS Sol - Last Filed: 01/09/21 09:37> (7) Hypertension: Code(s): I10 - Essential (primary) hypertension <Shanta ParisiNICHOLAS Cardoso - Last Filed: 01/09/21 09:37> Status: Chronic <Shanta ParisiJeffery EbenezerNICHOLAS - Last Filed: 01/09/21 09:37> Assessment and Plan: Continue HCTZ, Metoprolol, monitor VS, make adjustments as needed to medications * Continue home medication on discharge <Livanmicki IsakNICHOLAS Cardoso - Last Filed: 01/09/21 09:37> (8) Chronic GERD: Code(s): K21.9 - Gastro-esophageal reflux disease without esophagitis <Shanta R
--- NOTE | 2021-01-09 08:55 | PM.DS ---
DS: Admitting Diagnosis Admitting Diagnosis Generalized weakness/ physical deconditioning <SARAH CastroC - Last Filed: 01/09/21 09:37> DS: Discharge Diagnosis Discharge Diagnosis (1) Generalized muscle weakness: Code(s): M62.81 - Muscle weakness (generalized) <SANGITA Castro-C - Last Filed: 01/09/21 09:37> Status: Chronic <SARAH CastroC - Last Filed: 01/09/21 09:37> Assessment and Plan: Pt to work with PT/OT for: Relieve pain, Improve movement or ability, Prevent or recover from an injury, Prevent disability, Work on balance to prevent a slip or fall, Learn to use assistive devices like a walker or cane Home with home health <NICHOLAS Castro - Last Filed: 01/09/21 09:37> (2) Candidiasis: Code(s): B37.9 - Candidiasis, unspecified <SANGITA Castro-C - Last Filed: 01/09/21 09:37> Status: Acute <SANGITA Castro-C - Last Filed: 01/09/21 09:37> Assessment and Plan: DC'ed Triamcinolone, started Nystatin Cream BID, Wash clean dry area prior to application of cream <NICHOLAS Castro - Last Filed: 01/09/21 09:37> (3) History of creation of ostomy: Code(s): Z93.9 - Artificial opening status, unspecified <SANGITA Castro-C - Last Filed: 01/09/21 09:37> Status: Acute <SARAH CastroC - Last Filed: 01/09/21 09:37> Assessment and Plan: Pt takes care of his colostomy needs on his own. <NICHOLAS Castro - Last Filed: 01/09/21 09:37> (4) Gout: Code(s): M10.9 - Gout, unspecified <SANGITA Castro-C - Last Filed: 01/09/21 09:37> Status: Chronic <NICHOLAS Castro - Last Filed: 01/09/21 09:37> Assessment and Plan: Continue Allopurinol <Shanta SolSANGITA-Pam - Last Filed: 01/09/21 09:37> (5) T2DM (type 2 diabetes mellitus): Qualifiers: Diabetes mellitus complication detail: with polyneuropathy Diabetes mellitus complication status: with neurologic complications Diabetes mellitus mcc insulin use: with intermodal owner operator truck driver use Qualified Code(s): E11.42 - Type 2 diabetes mellitus with diabetic polyneuropathy; Z79.4 - long term care phlebotomist (current) use of insulin <Shanta SolSARAHC - Last Filed: 01/09/21 09:37> Code(s): E11.9 - Type 2 diabetes mellitus without complications <Shanta ParisiSANGITA CardosoVeronicaPam - Last Filed: 01/09/21 09:37> Status: Chronic <Shanta Sol PEN AND PENCIL REPAIRERVeronicaPam - Last Filed: 01/09/21 09:37> Assessment and Plan: Continue Detemir, SSI, Glucose monitoring, hypoglycemic protocol in place, diabetic diet. Continue home meds on discharge <Shanta ParisiJeffery Sol PEN AND PENCIL REPAIRERVane - Last Filed: 01/09/21 09:37> (6) Hyperlipidemia: Code(s): E78.5 - Hyperlipidemia, unspecified <Shanta SolSANGITAVeronicaPam - Last Filed: 01/09/21 09:37> Status: Chronic <Shanta SolSANGITAVeronicaPam - Last Filed: 01/09/21 09:37> Assessment and Plan: Continue Atorvastatin <Shanta Meza SANGITA SolVeronicaPam - Last Filed: 01/09/21 09:37> (7) Hypertension: Code(s): I10 - Essential (primary) hypertension <Shanta ParisiSARAH CardosoC - Last Filed: 01/09/21 09:37> Status: Chronic <Shanta ParisiJeffery EbenezerSANGITAVeronicaPam - Last Filed: 01/09/21 09:37> Assessment and Plan: Continue HCTZ, Metoprolol, monitor VS, make adjustments as needed to medications Continue home medication on discharge <Livanmicki IsakNICHOLAS Cardoso - Last Filed: 01/09/21 09:37> (8) Chronic GERD: Code(s): K21.9 - Gastro-esophageal reflux disease without esophagitis <NICHOLAS Castro - Last Filed: 01/09/21 09:37> Status: Chronic <NICHOLAS Castro - Last Filed: 01/09/21 09:37> Assessment and Plan: Continue Protonix PO <NICHOLAS Castro - Last Filed: 01/09/21 09:37> (9) BPH (benign prostatic hyperplasia): Code(s): N40.0 - Benign prostatic hyperplas
[2021-01-09 09:31] VITALS: PULSE 80
[2021-01-09 09:31] LABS: Hematocrit 38.8 % (37.0-46.0); Hemoglobin 10.4 g/dL (12.4-15.3); Mean Corpuscular HGB Conc 26.8 g/dL (32.0-36.0); Mean Corpuscular Hemoglobin 23.1 pg (27.0-31.0); Mean Platelet Volume 9.9 fl (8.7-11.0); Platelet Count Result 240 K/mm3 (150-420); Red Blood Count 4.51 M/mm3 (4.70-6.10); Red Cell Distribution Width 21.8 % (11.6-14.4); White Blood Count 5.2 K/mm3 (4.8-10.8)
[2021-01-09] MEDS: PANTOPRAZOLE 40 MG TABLET PO (09:31)
[2021-01-09] MEDS: POTASSIUM CHLORIDE 20 MEQ TABLET PO (09:31)
[2021-01-09] MEDS: ATORVASTATIN 40 MG TABLET PO (09:31)
[2021-01-09] MEDS: METOPROLOL TARTRATE 50 MG TAB PO (09:31)
[2021-01-09] MEDS: allopurinoL 300 MG TABLET PO (09:32)
[2021-01-09] MEDS: TAMSULOSIN HCL 0.4 MG CAPSULE PO (09:32)
[2021-01-09] MEDS: TOLNAFTATE 1% POWDER 45 GM BTL 1 APPLIC TOPICAL (09:35)
[2021-01-09] MEDS: MICONAZOLE NITRATE 2% CREAM 30 GM TUBE 1 APPLIC TOPICAL (09:35)
[2021-01-09 09:56] LABS: Anion Gap 6 mmol/L (8-16); Blood Urea Nitrogen 13 mg/dL (7-18); Calcium 8.7 mg/dL (8.5-10.1); Carbon Dioxide 37 mmol/L (21-32); Chloride 99 mmol/L (98-108); Estimated CRCL calculation 148 ml/min; Estimated Glomerular Filt Rate > 60; Glucose 173 mg/dL (70-99); Osmolality Calculated 298 mOsm/kg (285-295); Potassium 4.2 mmol/L (3.5-5.1); Sodium 142 mmol/L (136-145)
--- NOTE | 2021-01-09 11:10 | PC.NURSE ---
discharge instructions reviewed with patient, no questions voiced
[2021-01-09 12:03] LABS: Glucose Point of Care 149 mg/dl (65-105)
[2021-01-09 13:00] VITALS: PULSE 60; RESP 20; O2SAT 95
--- NOTE | 2021-01-09 13:27 | PC.NURSE ---
Discharge to home via ambulance, sister here and taking all personal belongings with him to home including all colostomy supplies, walker and bedside commode, no questions upon discharge to home
== END 2021-01-09 13:10 | disposition home health service (06) | DRG 556 ==
PROVIDERS: Nurse Practitioner; Nurse Practitioner Family; Admitting Provider Emergency Medicine; PCP Family Medicine; Visit Provider Emergency Medicine
DX: M62.81 Muscle weakness (generalized) (principal); I10 Essential (primary) hypertension; I44.0 Atrioventricular block, first degree; D50.9 Iron deficiency anemia, unspecified; E78.5 Hyperlipidemia, unspecified; E11.9 Type 2 diabetes mellitus without complications; E03.9 Hypothyroidism, unspecified; K21.9 Gastro-esophageal reflux disease without esophagitis; M10.9 Gout, unspecified; M48.02 Spinal stenosis, cervical region; N40.0 Benign prostatic hyperplasia without lower urinary tract symptoms; E66.01 Morbid (severe) obesity due to excess calories; Q80.9 Congenital ichthyosis, unspecified; Z93.3 Colostomy status; Z79.4 Long term (current) use of insulin
CPT/HCPCS: 36415; 80048; 80053; 81001; 82948; 85025; 85027; 97110; 97161; 97165; 97530; 97535; A9270; J1650; J1815

== ENCOUNTER 2021-04-04 12:33 | Outpatient (NON) | payer MEDICARE, SELFPAY ==
[2021-04-04 13:39] LABS: Alanine Aminotransferase 24 U/L (16-63); Albumin Level 2.9 g/dL (3.4-5.0); Alkaline Phosphatase 78 U/L (46-116); Anion Gap 6 mmol/L (8-16); Aspartate Amino Transferase 19 U/L (15-37); Bilirubin,Total 0.3 mg/dL (0.00-1.00); Blood Urea Nitrogen 17 mg/dL (7-18); Carbon Dioxide 35 mmol/L (21-32); Chloride 102 mmol/L (98-108); Estimated Glomerular Filt Rate 58; Free T4 Free Thyroxine 1.05 ng/dL (0.76-1.46); Glucose 169 mg/dL (70-99); Osmolality Calculated 301 mOsm/kg (285-295); Potassium 3.9 mmol/L (3.5-5.1); Sodium 143 mmol/L (136-145); Thyroid Stimulating Hormone 3.03 uIU/mL (0.36-3.74); Total Protein 5.9 g/dL (6.4-8.2)
[2021-04-08 11:43] LABS: Cholesterol 97 mg/dL (0-200); HDL Direct 36 mg/dL (40-60); LDL Cholesterol Calculated 43 mg/dL (<130); Triglycerides 92 mg/dL (0-150)
[2021-04-08 12:01] LABS: Hemoglobin A1C 6.4 % (<5.7)
== END 2021-04-04 12:34 | disposition home or self-care (01) ==
LOC: CHSLAB 12:35
PROVIDERS: Visit Provider Family Medicine
DX: E03.9 Hypothyroidism, unspecified (principal); E11.9 Type 2 diabetes mellitus without complications; D64.9 Anemia, unspecified
CPT/HCPCS: 36415; 80053; 80061; 83036; 84439; 84443

== ENCOUNTER 2021-04-05 10:15 | Outpatient (NON) | payer MEDICARE, SELFPAY ==
[2021-04-05 10:28] LABS: Basophils Absolute Auto 0.04 K/mm3 (0.00-0.10); Basophils Percent Auto 0.6 % (0.0-1.0); Eosinophils Absolute Auto 0.27 K/mm3 (0.02-0.50); Eosinophils Percent Auto 4.1 % (1.0-6.0); Hematocrit 36.8 % (37.0-46.0); Hemoglobin 10.6 g/dL (12.4-15.3); Immature Granulocyte Absolute 0.04 K/mm3 (0.00-0.00); Immature Granulocyte Percent A 0.6 % (0.0-0.0); Lymphocytes Absolute Auto 0.69 K/mm3 (1.10-4.50); Lymphocytes Percent Auto 10.5 % (18.0-42.0); Mean Corpuscular HGB Conc 28.8 g/dL (32.0-36.0); Mean Corpuscular Hemoglobin 26.1 pg (27.0-31.0); Mean Corpuscular Volume 90.6 fL (78.0-102.0); Mean Platelet Volume 10.1 fl (8.7-11.0); Monocytes Absolute Auto 0.55 K/mm3 (0.10-0.90); Monocytes Percent Auto 8.3 % (2.0-11.0); Neutrophils Percent Auto 75.9 % (50.0-70.0); Platelet Count Result 243 K/mm3 (150-420); Red Blood Count 4.06 M/mm3 (4.70-6.10); Red Cell Distribution Width 17.8 % (11.6-14.4); White Blood Count 6.6 K/mm3 (4.8-10.8)
== END 2021-04-05 10:16 | disposition home or self-care (01) ==
LOC: CHSLAB 10:17
PROVIDERS: Visit Provider Family Medicine
DX: E03.9 Hypothyroidism, unspecified (principal); E11.9 Type 2 diabetes mellitus without complications; D64.9 Anemia, unspecified
CPT/HCPCS: 85025